=== PATIENT | female | born 1965 | race Caucasian/White ===

== ENCOUNTER 2017-07-15 06:40 | Emergency (ER) | payer BC, SELFPAY ==
[2017-07-15 06:41] VITALS: BP 120/76; PULSE 86; RESP 16; TEMP 36.9; O2SAT 100; BMI 32.7
--- NOTE | 2017-07-15 07:04 | RAD_ITS ---
STUDY: X-RAY - RIGHT KNEE REASON FOR EXAM: Female, 51 years old. Fall TECHNIQUE: 4 view(s) of the knee. COMPARISON: None. FINDINGS: Normal visualized distal femur. Normal visualized proximal tibia and fibula. Normal proximal tibiofibular articulation. There is no demonstrated fracture. Normal medial femorotibial compartment. Normal lateral femorotibial compartment. 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 There is a soft tissue prominence in the suprapatellar region suggesting a small volume joint effusion. The soft tissue structures are unremarkable. RAD/Knee 4 or More Views IMPRESSION: There is NO fracture or malalignment. 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 There is a small joint effusion. Electronically Signed: Neville Torres MD at 7:46 EDT , Service support ,
--- NOTE | 2017-07-15 07:08 | ED.VISSUMM ---
- ER Visit Summary Date of Service: 07/15/17 Chief Complaint: Right knee pain History of Present Illness: The patient is a [address] Arguello. She reports that yesterday she was putting her shoe on and lost her balance. She fell and injured her right knee. She is unsure whether she tell us that it awkwardly or landed on it. States that she had minimal pain initially, but over the course the night the pain is gotten much worse. Is an aching pain that is 10 out of 10 with movement or walking. She is pain-free at rest. She denies any other injuries. No loss of consciousness, neck, back, shoulder, or wrist pain. Physical Examination: Vitals: Stable. Afebrile. Neck: No vertebral tenderness. Full ROM without difficulty. Cleared by NEXUS criteria. Back: No vertebral tenderness. General: A&O x 3. NAD. Cardiovascular exam: Regular rate and rhythm, no murmur, rub or gallop. Respiratory exam: Chest nontender. No crepitus. Clear to auscultation bilaterally. No wheezes or stridor. Abdominal exam: Soft, nontender, nondistended, normal bowel sounds. No pain in RUQ or LUQ specifically. No peritoneal signs. Extremity: Moderate diffuse tenderness palpation over her right knee. There is a small joint effusion, the exam is limited by body habitus. She has pain with posterior drawer, but no ligamentous instability. No pain with anterior drawer/medial/lateral stress. No ligamentous instability. Negative Celina. Test Results: Right knee x-ray shows no fracture. Emergency Department Course and Treatment: Patient was treated with naproxen and [place] p.o. She is resting comfortably. Treatment Plan: Patient will be discharged with [place] and naproxen. Instructed to follow-up Dr. Jose E Terrell in 1 week if not improving. Disposition: To home in improved and stable condition. Impression: 1. Right knee pain, acute. This note was generated with [employer] dictation software. It may contain incorrect words, spelling, and punctuation that were not noted in review of the chart prior to signing ED Disposition - Plan for ED Patient: Chief Complaint: Lower Extremity Injury Instructions: ED Knee Pain UKO Prescriptions: Hydrocodone Bitart/Apap 5-325 [Bethel 5/325] 1 - 2 tablet PO Q4H PRN PRN 3 Days #20 tablet PRN Reason: Pain Naproxen [Naprosyn] 500 mg PO BID #20 tablet Referrals: Jose E Terrell MD [STAFF PHYSICIAN] - 1 Week if not improving
[2017-07-15] MEDS: Naproxen 250 MG Tablet 500 MG PO (07:13)
[2017-07-15] MEDS: HYDROcodone Bitartrate/Apap 5/325 Tablet PO (07:13)
--- NOTE | 2017-07-15 07:13 | ED.DCSUM_ITS ---
- ER Visit Summary Date of Service: 07/15/17 Chief Complaint: Right knee pain History of Present Illness: The patient is a [address] Arguello. She reports that yesterday she was putting her shoe on and lost her balance. She fell and injured her right knee. She is unsure whether she tell us that it awkwardly or landed on it. States that she had minimal pain initially, but over the course the night the pain is gotten much worse. Is an aching pain that is 10 out of 10 with movement or walking. She is pain-free at rest. She denies any other injuries. No loss of consciousness, neck, back, shoulder, or wrist pain. Physical Examination: Vitals: Stable. Afebrile. Neck: No vertebral tenderness. Full ROM without difficulty. Cleared by NEXUS criteria. Back: No vertebral tenderness. General: A&O x 3. NAD. Cardiovascular exam: Regular rate and rhythm, no murmur, rub or gallop. Respiratory exam: Chest nontender. No crepitus. Clear to auscultation bilaterally. No wheezes or stridor. Abdominal exam: Soft, nontender, nondistended, normal bowel sounds. No pain in RUQ or LUQ specifically. No peritoneal signs. Extremity: Moderate diffuse tenderness palpation over her right knee. There is a small joint effusion, the exam is limited by body habitus. She has pain with posterior drawer, but no ligamentous instability. No pain with anterior drawer/ medial/lateral stress. No ligamentous instability. Negative Celina. Test Results: Right knee x-ray shows no fracture. Emergency Department Course and Treatment: Patient was treated with naproxen and [place] p.o. She is resting comfortably. Treatment Plan: Patient will be discharged with [place] and naproxen. Instructed to follow-up Dr. Jose E Terrell in 1 week if not improving. Disposition: To home in improved and stable condition. Impression: 1. Right knee pain, acute. This note was generated with [employer] dictation software. It may contain incorrect words, spelling, and punctuation that were not noted in review of the chart prior to signing ED Disposition - Plan for ED Patient: Chief Complaint: Lower Extremity Injury Instructions: ED Knee Pain UKO Prescriptions: Hydrocodone Bitart/Apap 5-325 [[place] 5/325] 1 - 2 tablet PO Q4H PRN PRN 3 Days # 20 tablet PRN Reason: Pain Naproxen [Naprosyn] 500 mg PO BID #20 tablet Referrals: Jose E Terrell MD [STAFF PHYSICIAN] - 1 Week if not improving
[2017-07-15 08:08] VITALS: RESP 16
== END 2017-07-15 08:08 | disposition home or self-care (01) ==
PROVIDERS: Emergency Provider Emergency Medicine; Family Provider Family Medicine; PCP Family Medicine
DX: M25.561 Pain in right knee (principal); M25.461 Effusion, right knee
CPT/HCPCS: 73564; 99283

== ENCOUNTER 2017-11-23 10:37 | Inpatient (IN) | payer BC, SELFPAY ==
[2017-11-23] VITALS (14 sets, daily range): BP systolic 94–134; BP diastolic 56–85; PULSE 75–121; RESP 13–21; TEMP 37.1–37.3; O2SAT 96–100; BMI 32.9; BMI 31.9
--- NOTE | 2017-11-23 11:17 | EKG12_ITS ---
Test Reason : CP Blood Pressure : / mmHG Vent. Rate : 099 BPM Atrial Rate : 099 BPM P-R Int : 134 ms QRS Dur : 082 ms QT Int : 362 ms P-R-T Axes : 041 -01 186 degrees QTc Int : 464 ms Normal sinus rhythm Inferior infarct, age undetermined ST & T wave abnormality, consider myocardial ischemia Abnormal ECG Reconfirmed by YVETTE RICHARDSON, DAVID ([id number]), editorial cartoonist RITA CLARKE ([id number]) on 12/28/2017 2:48:38 PM Referred By: AGUSTINA Confirmed By:DAVID CRAWFORD MD
--- NOTE | 2017-11-23 11:24 | RAD_ITS ---
STUDY: X-RAY CHEST REASON FOR EXAM: Female, 52 years old. Chest pain TECHNIQUE: PA and lateral views of the chest. COMPARISON: None. FINDINGS: The lungs are clear and expanded. There is no demonstrated pleural abnormality. Normal size heart. Normal mediastinum and rae. Normal visualized pulmonary arteries. Normal visualized aortic arch and descending thoracic aorta. Normal visualized thoracic spine. Normal visualized ribs, clavicles, and shoulders. There is no demonstrated abnormality of the visualized soft tissue structures of the upper abdomen. RAD/Chest 1 View (Portable) IMPRESSION: Normal x-ray examination of the chest. Electronically Signed: Michael Hoffmann MD at 11:45 EDT Tel , Service support ,
[2017-11-23 11:35] LABS: Absolute Lymphocyte Count 1.14 X10^3/ul (0.83-4.51); Absolute Neutrophil Count 4.6 X10^3/uL (2.0-7.7); Basophil# 0.02 X10^3/uL; Basophil% 0.3 % (0-1); Eosinophil# 0.04 X10^3/uL; Eosinophils% 0.6 % (0-5); Hematocrit 41.1 % (37-47); Hemoglobin 13.6 g/dl (12.0-15.0); Lymphocyte # 1.14 X10^3/ul (4.0); Lymphocyte % 18.4 % (19-41); Mean Corp Hgb Conc 33.1 g/gl (32-36); Mean Corpuscular Hgb 33.1 pg (27.0-32.0); Mean Platelet Vol. 9.8 fl (6.2-12.0); Monocyte# 0.44 X10^3/uL; Monocyte% 7.1 % (0-10); Neutrophil # 4.56 X10^3/uL (2.7-7.7); Neutrophil % 73.6 % (47-70); POSITIVE COUNT NO; POSITIVE DIFFERENTIAL NO; POSITIVE MORPHOLOGY NO; Platelet Count 130 K/mm3 (150-450); RBC Distribution Width SD 47.3 fl (35.1-43.9); Red Blood Count 4.11 M/mm3 (4.2-5.4); White Blood Count 6.2 K/mm3 (4.4-11.0)
--- NOTE | 2017-11-23 11:43 | ED.VISSUMM ---
- ER Visit Summary Date of Service: 11/23/17 Chief Complaint: Chest pain History of Present Illness: The patient is a 52 F who states that last week she was on vacation in [place] she states that on Thursday she began to have a pressure in her chest with exertion that would always resolve when she rested. She states now with even the minimalist amount of exertion she feels the pressure. At rest she feels better. She states that she returned home from her vacation on Thursday and felt dehydrated and was shaky and jerky at times. She states that part is resolved but she continues to have the chest pressure with exertion. 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 She went to her primary care physician's office and was referred to the emergency department based on an abnormal EKG. This showed ST T-wave changes anterior laterally. Patient has no old EKGs to compare to. She has a history of hypertension. She does not take daily aspirin. The patient states that she will require some type of sedative even to have simple blood work drawn. Physical Examination: Afebrile vital signs are stable Gen: Well-nourished well-developed Head: Normocephalic atraumatic Eyes: Perrl EOMI ENT: TMs clear no rhinorrhea moist mucous membranes Neck: Supple no lymphadenopathy no JVD nontender CVS: Regular rate rhythm no murmurs normal S1-S2 Respiratory: No distress clear to auscultation bilaterally chest nontender Abdomen: Soft nontender nondistended normal bowel sounds no masses Back: Nontender Extremity: Nontender no edema Skin: Normal color no rash Neuro: alert orientated ?3 CN II-XII intact normal strength sensation reflexes gait cerebellar Psych: Very anxious Test Results: EKG here in the department shows ST and T-wave changes anterior lateral leads. Upon an elevated at 0.179. Creatinine 0.92. Chest x-ray negative. Repeat EKG shows resolved changes at rest. Emergency Department Course and Treatment: Received Ativan and aspirin. She also received metoprolol because her heart rate was at 100. We also gave her 180 mg of Brilinta and a heparin bolus and drip addition to nitro paste. Case was discussed with Dr. Pathak and Dr. Loaiza Impression: 1. Acute coronary syndrome This note was generated with [employer].ation software. It may contain incorrect words, spelling, and punctuation that were not noted in review of the chart prior to signing ED Disposition - Plan for ED Patient: Chief Complaint: Chest Pain
--- NOTE | 2017-11-23 11:46 | ED.DCSUM_ITS ---
- ER Visit Summary Date of Service: 11/23/17 Chief Complaint: Chest pain History of Present Illness: The patient is a 52 F who states that last week she was on vacation in [place] she states that on Thursday she began to have a pressure in her chest with exertion that would always resolve when she rested. She states now with even the minimalist amount of exertion she feels the pressure. At rest she feels better. She states that she returned home from her vacation on Thursday and felt dehydrated and was shaky and jerky at times. She states that part is resolved but she continues to have the chest pressure with exertion. 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 She went to her primary care physician's office and was referred to the emergency department based on an abnormal EKG. This showed ST T -wave changes anterior laterally. Patient has no old EKGs to compare to. She has a history of hypertension. She does not take daily aspirin. The patient states that she will require some type of sedative even to have simple blood work drawn. Physical Examination: Afebrile vital signs are stable Gen: Well-nourished well-developed Head: Normocephalic atraumatic Eyes: Perrl EOMI ENT: TMs clear no rhinorrhea moist mucous membranes Neck: Supple no lymphadenopathy no JVD nontender CVS: Regular rate rhythm no murmurs normal S1-S2 Respiratory: No distress clear to auscultation bilaterally chest nontender Abdomen: Soft nontender nondistended normal bowel sounds no masses Back: Nontender Extremity: Nontender no edema Skin: Normal color no rash Neuro: alert orientated ?3 CN II-XII intact normal strength sensation reflexes gait cerebellar Psych: Very anxious Test Results: EKG here in the department shows ST and T-wave changes anterior lateral leads. Upon an elevated at 0.179. Creatinine 0.92. Chest x-ray negative. Repeat EKG shows resolved changes at rest. Emergency Department Course and Treatment: Received Ativan and aspirin. She also received metoprolol because her heart rate was at 100. We also gave her 180 mg of Brilinta and a heparin bolus and drip addition to nitro paste. Case was discussed with Dr. Pathak and Dr. Loaiza Impression: 1. Acute coronary syndrome This note was generated with [employer] software. It may contain incorrect words, spelling, and punctuation that were not noted in review of the chart prior to signing ED Disposition - Plan for ED Patient: Chief Complaint: Chest Pain
[2017-11-23 11:52] LABS: Anion Gap 9 (5-15); BUN 7 mg/dL (7-18); BUN/Creat Ratio 7.6 RATIO (10-20); Calcium,Total 9.4 mg/dL (8.5-10.1); Chloride 98 mmol/L (98-107); Creatinine, Serum 0.92 mg/dL (0.55-1.02); EST Glomerular Filtration Rate 69 mL/min (>60); Est Glom Filt Rate - Afr Amer 83 mL/min (>60); Estimated Creatinine Clearance 71.14 ml/min; Glucose 89 mg/dL (74-106); Potassium 3.6 mmol/L (3.5-5.1); Sodium Level 134 mmol/L (136-145)
[2017-11-23] MEDS: Aspirin 81 MG TAB.CHEW 324 MG PO (11:59)
[2017-11-23] MEDS: LORazepam 1 MG Tablet PO (11:59)
--- NOTE | 2017-11-23 12:10 | EKG12_ITS ---
Test Reason : REPEAT EKG Blood Pressure : / mmHG Vent. Rate : 096 BPM Atrial Rate : 096 BPM P-R Int : 162 ms QRS Dur : 082 ms QT Int : 336 ms P-R-T Axes : 032 -15 023 degrees QTc Int : 424 ms Normal sinus rhythm Leftward axis Inferior OH, age undetermined, cannot be excluded Confirmed by YVETTE RICHARDSON, DAVID ([id number]), editor publications RITA CLARKE ([id number]) on 11/27/2017 1:08:17 PM Referred By: KAJAL Confirmed By:DAVID CRAWFORD MD
--- NOTE | 2017-11-23 12:39 | PCM.HP.STD ---
Problem List (1) Unstable angina Status: Acute (2) NSTEMI (non-ST elevated myocardial infarction) Status: Acute (3) Hypertension Status: Chronic Qualifiers: Hypertension type: essential hypertension Qualified Code(s): I10 - Essential (primary) hypertension History of Present Illness Date of Admission: 11/23/17 Chief Complaint: Chest pain - 6 days The patient is a 52 year old F with PMHx of hypertension, who comes with chest pain ongoing for 6 days. Chest pain described as substernal, pressure-like, nonradiating worse with exertion for the first 2 days. Subsequently chest pain occured at rest and with minimal exertion. Denied any diaphoresis, nausea or vomiting but felt very weak and lightheaded. She thought it was because she was dehydrated and started to hydrate herself with Gatorade which seemed to help the symptoms a little bit. She eventually became bedbound because with a minimal exertion she gets severe chest pain that takes several minutes to resolve. Vitals in the ED with a stable. Admitting blood work was unremarkable. EKG initially showed T-wave inversions in the anterolateral leads, repeat EKG shows improvement and normalization of the T waves. Her initial troponin was slightly elevated Past Medical History Past Medical History (Chronic Problems): Chronic Problems Hypertension (Chronic) Allergies No Known Allergies Allergy (Verified 11/23/17 10:40) Home Medications: Ambulatory Orders Medication Instructions Recorded Losartan Potassium 1 tab PO DAILY 11/23/17 Pnv No.122/Iron/Folic Acid 1 each PO DAILY 11/23/17 [ Multi Tablet] Surgical History: no surgical history Psychiatric History: No pertinent psych hx Lives: Spouse/ Significant Other Smoking Status: Never smoker Tobacco Use: Non-smoker Alcohol: None Drugs: None - *Family History Maternal History Items: Hypertension Paternal History Items: Cancer Review of Systems Constitutional: Reports: Weakness. Denies: Anorexia, Chills, Fever, Weight Change Eyes: Denies: Blurred vision, Cataracts HEENT: Denies: Difficulty Hearing, Difficulty Swallowing, Head Aches, Hearing Changes, Sinus Congestion, Sinus Drainage Cardiovascular: Reports: Chest Pain, Chest Pressure, Chest Tightness, Light Headedness. Denies: Edema, Orthopnea, Palpitations, Paroxysmal Noc. Dyspnea, Syncope Respiratory: Denies: Cough, Hemoptysis, Shortness of breath at rest, Shortness of breath upon exertion, Sputum production Gastrointestinal: Denies: Abdominal Pain, Constipation, Hematemesis, Nausea, Vomiting Genitourinary: Denies: Dysuria Musculoskeletal: Denies: Joint Pain, Joint stiffness, Joint swelling, Joint Tenderness Skin: Denies: Rash, Wounds Neurological: Denies: Numbness, Tingling, Focal weakness Psychiatric: Denies: Anxiety, Depression, Homicidal Ideations, Suicidal Ideations Hematologic/ Lymphatic: Denies: Easy Bruising, Easy Bleeding VTE Information - Inpt Only VTE Present on Admission: No VTE Pharm Prophylaxis ordered?: Yes Patient Problems: Active and Suspected Problems Unstable angina (Acute) NSTEMI (non-ST elevated myocardial infarction) (Acute) - Physical Exam General: Alert, Oriented x3, Cooperative, No apparent distress, - HEENT: Atraumatic, PERRLA, EOMI, Normocephalic Oral: Moist Mucosa - Appears anxious Neck: Supple, No JVD, Negative Carotid Bruits Lungs: Clear to auscultation, Normal air movement Cardiovascular: Regular rate, Regular Rhythm, Normal S1, Normal S2, No murmurs Abdomen: Bowel Sounds Present, Soft, Non Tender, Non-Distended, No Hepato-splenomegaly Extremities: No edema Skin: No rashes, No breakdown Musculoskeletal: No Tenderness to Palpation of Joints or Extremities Lymphatic: No Cervical, Supraclavicular, or Inguinal Adenopathy Neurological: Cranial nerves II-XII grossly intact, Neuro grossly intact Psych/Mental Status: Normal Affect, Appropriate Vital Signs Temp Pulse Resp BP Pulse Ox 99.1 F 98 21 H 111/72 98 11/23/17 10:37 11/23/17 12:11 11/23/17 12:11 11/23/17 12:11 11/23/17 12:11 Oxygen Delivery Method Room Air Weight: 95.4 kg Body Mass Index (BMI) 32.9 Laboratory Tests Past 24 Hrs 11/23/17 11/23/17 11:26 11:26 WBC 6.2 RBC 4.11 L Hgb 13.6 Hct 41.1 MCV 100.0 H MCH 33.1 H MCHC 33.1 RDW 13.0 RDW Differential 47.3 H Plt Count 130 L MPV 9.8 Immature Gran % (Auto) 0.000 Neut % (Auto) 73.6 H Lymph % (Auto) 18.4 L [place] % (Auto) 7.1 Eos % (Auto) 0.6 Baso % (Auto) 0.3 Absolute Neuts (auto) 4.6 Absolute Lymphs (auto) 1.14 Total Counted Not Reportable Sodium 134 L Potassium 3.6 Chloride 98 Carbon Dioxide 27.0 Anion Gap 9 BUN 7 Creatinine 0.92 Estim Creat Clear Calc 71.14 Est GFR (MDRD) Af Amer 83 Est GFR (MDRD) Non-Af 69 BUN/Creatinine Ratio 7.6 L Glucose 89 Calcium 9.4 Troponin I 0.174 H Assessment/Plan All Active Problems Unstable angina (Acute) NSTEMI (non-ST elevated myocardial infarction) (Acute) 52 year old F with PMHx of hypertension, who comes with chest pain ongoing for 6 days. Chest pain described as substernal, pressure-like, nonradiating worse with exertion for the first 2 days. Subsequently chest pain occured at rest and with minimal exertion. 1. Chest pain, typical, concerning for NSTEMI/UA, TANMAY score of 2, started on heparin drip, loaded on Brilinta, Cardiology consulted; per ED, patient will be taken to cardiac cath today Plan: Admit to PCU, monitor on telemetry, trend troponins, continue on heparin drip, continue on Brilinta, beta-dona, aspirin, statin, lipid profile in a.m. 2. Hypertension, on losartan, continue same 3. Anxiety disorder, not on any home meds, likely situtational, will put on prn Ativan 4. DVT PPx- on Heparin drip. Code Visit Inpatient E&M: 37435 Init Hosp L3
[2017-11-23 12:52] LABS: Partial Thromboplast Time 27.4 Seconds (24.1-36.2)
[2017-11-23 12:55] LABS: Prothrombin Time (Protime)PT. 12.8 SECONDS (11.7-14.9)
[2017-11-23 13:01] LABS: AST(SGOT) 27 U/L (15-37); Alanine Aminotransfer ALT/SGPT 28 U/L (13-56); Albumin, Serum 3.4 g/dL (3.2-5.0); Alkaline Phosphatase 65 U/L (45-117); Bilirubin, Direct 0.17 mg/dL (0.00-0.30); Globulin 4.5 g/dL (2.2-4.2); Protein, Total 7.9 g/dL (6.4-8.2)
[2017-11-23] MEDS: TICAGRELOR 90 MG TABLET 180 MG PO (13:06)
[2017-11-23] MEDS: Heparin Injection (Vial) 5,000 UNIT/ML VIAL 7500 UNIT IV (13:06)
[2017-11-23] MEDS: Nitroglycerin Oint 1 INCH PACKET TRANSDERM. (13:06)
[2017-11-23] MEDS: Metoprolol Tartrate 5 MG/5 ML Vial IV (13:06)
[2017-11-23] MEDS: LORazepam 2 MG/ML Syringe 1 MG IV (16:53)
--- NOTE | 2017-11-23 17:20 | PCM.CONS.C ---
Problem List (1) Unstable angina Status: Acute (2) NSTEMI (non-ST elevated myocardial infarction) Status: Acute (3) Hypertension Status: Chronic Qualifiers: Hypertension type: essential hypertension Qualified Code(s): I10 - Essential (primary) hypertension Reason for Consult Date of Consultation: 11/23/17 History of Present Illness: The patient is a 52 year old white female with a past medical history of hypertension who presents for evaluation of symptoms concerning for unstable angina pectoris and an abnormal troponin I level concerning for an acute non-ST segment elevation VT. The patient states to the best of her knowledge she has no previous cardiovascular history other than her hypertension. She was in her usual state of health until recently when she felt she was cramping all over from dehydration. She increased her fluid intake including agents such as Gatorade. She noted her cramping sensation abated. 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 This created a discomfort across her chest without significant radiation or other associated symptoms other than dyspnea. Her symptoms abated when she was resting. She has had no orthopnea, PND, or peripheral pitting edema. There has been no near syncope or syncope. She denies any recent illnesses or emotionally stressful events. She presented to her primary care physician office earlier this day. An ECG was obtained. She was noted to have sinus rhythm with T-wave changes compatible with myocardial ischemia in the anterior, lateral, and inferior distributions. She was subsequently referred to the emergency department for further evaluation. There she had an abnormal troponin I level. A repeat ECG appeared to be similar. However, after she was in the emergency department for a period of time resting, her ECG was repeated which demonstrated her previous T-wave inversions returning towards baseline. She was treated for the aforementioned changes and subsequently admitted to the PCU for further evaluation and care. [] Past Medical History Allergies/Adverse Reactions: Allergies No Known Allergies Allergy (Verified 11/23/17 10:40) Home Medications: Ambulatory Orders Medication Instructions Recorded Losartan Potassium 1 tab PO DAILY 11/23/17 Pnv No.122/Iron/Folic Acid 1 each PO DAILY 11/23/17 [ Multi Tablet] Past Medical History (Chronic Problems): Chronic Problems Hypertension (Chronic) Surgical History: no surgical history Psychiatric History: No pertinent psych hx - *Family History Maternal History Items: Hypertension Paternal History Items: Cancer Lives: Spouse/ Significant Other Smoking Status: Never smoker Tobacco Use: Non-smoker Alcohol: None Drugs: None Review of Systems - Review of Systems General: Denies: Fever, Night Sweats, Fatigue Cardiovascular: Reports: Chest Discomfort, Chest Discomfort with Exertion, Shortness of Breath, Shortness of Breath with Exertion. Denies: Orthopnea, PND, Peripheral Edema, Palpitations, Lightheadedness, Dizziness, Near Syncope, Syncope Respiratory: Denies: Cough, Sputum Production, Hemoptysis Gastrointestinal: Denies: Hematemesis, Hematochezia, Melena Genitourinary: Denies: Dysuria, Hematuria Skin: Denies: Rash Subjectve: This is a 52-year-old white female who appears to be resting comfortably at the moment in no acute distress. Objective: Vital Signs Temp Pulse Resp BP Pulse Ox 99.1 F 94 16 94/64 97 11/23/17 10:37 11/23/17 15:38 11/23/17 13:20 11/23/17 13:20 11/23/17 15:30 Oxygen Delivery Method Room Air Weight: 204 lb 2.369 oz Body Mass Index (BMI) 31.9 General: Awake, Alert, Oriented x 3, Cooperative, No Acute Distress HEENT: Atraumatic, Normocephalic, PERRL, EOMI, Sclera Non Icteric Oral: Moist Mucosa Neck: Supple, Good ROM, No JVD Lungs: Clear to auscultation Cardiovascular: Regular Rhythm, Normal S1, Normal S2 Murmur Murmur: Grade 3/6, Harsh, Mid Systolic, LLSB, LVOT, Sternal Notch Vascular: No Carotid Bruits Abdomen: Bowel Sounds Present, Soft, Non Tender Extremities: No Cyanosis, No Clubbing, No edema Neurological: No Focal Motor or Sensory Deficit Psych/Mental Status: Appropriate, Normal Affect Rhythm: Sinus rhythm EKG: As noted above ECHO: Pending CXR: Preliminary evaluation: No acute cardiopulmonary disease process appreciated Assessment/Plan 1. Unstable angina pectoris The patient presents with symptoms concerning for unstable angina pectoris. She has been undergoing noninvasive evaluation thus far. She has been treated medically. She appears to be symptomatically improved at rest. She will continue to be monitored. She will continue medical management. It has been recommended she be considered for further evaluation with diagnostic cardiac catheterization. The procedure and risks were discussed with her and she was agreeable to this approach. 2. Non-ST segment elevation VT The patient has the aforementioned clinical presentation as well as objective findings with an abnormal troponin I level and ECG changes with waxing and waning T-wave changes. At the moment patient appears to be symptomatically stable. She will continue medical management. She will be recommended for further evaluation with diagnostic cardiac catheterization. 3. Hypertension The patient states her blood pressures been well controlled on her medications. Her blood pressures will be followed. Her medications will be adjusted as she goes to her evaluation and care. Comment: The above was discussed with the patient, her multiple family members present, and the [facility] emergency department staff. This note was generated with [employer] dictation software. It may contain incorrect words, spelling, and punctuation that were not noted in checking the note before signing.
--- NOTE | 2017-11-23 17:27 | CON.PCM_ITS ---
Problem List (1) Unstable angina Status: Acute (2) NSTEMI (non-ST elevated myocardial infarction) Status: Acute (3) Hypertension Status: Chronic Qualifiers: Hypertension type: essential hypertension Qualified Code(s): I10 - Essential (primary) hypertension Reason for Consult Date of Consultation: 11/23/17 History of Present Illness: The patient is a 52 year old white female with a past medical history of hypertension who presents for evaluation of symptoms concerning for unstable angina pectoris and an abnormal troponin I level concerning for an acute non-ST segment elevation [place]. The patient states to the best of her knowledge she has no previous cardiovascular history other than her hypertension. She was in her usual state of health until recently when she felt she was cramping all over from dehydration. She increased her fluid intake including agents such as Gatorade. She noted her cramping sensation abated. 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 This created a discomfort across her chest without significant radiation or other associated symptoms other than dyspnea. Her symptoms abated when she was resting. She has had no orthopnea, PND, or peripheral pitting edema. There has been no near syncope or syncope. She denies any recent illnesses or emotionally stressful events. She presented to her primary care physician office earlier this day. An ECG was obtained. She was noted to have sinus rhythm with T-wave changes compatible with myocardial ischemia in the anterior, lateral, and inferior distributions. She was subsequently referred to the emergency department for further evaluation. There she had an abnormal troponin I level. A repeat ECG appeared to be similar. However, after she was in the emergency department for a period of time resting, her ECG was repeated which demonstrated her previous T -wave inversions returning towards baseline. She was treated for the aforementioned changes and subsequently admitted to the PCU for further evaluation and care. [] Past Medical History Allergies/Adverse Reactions: Allergies No Known Allergies Allergy (Verified 11/23/17 10:40) Home Medications: Ambulatory Orders Medication Instructions Recorded Losartan Potassium 1 tab PO DAILY 11/23/17 Pnv No.122/Iron/Folic Acid 1 each PO DAILY 11/23/17 [ Multi Tablet] Past Medical History (Chronic Problems): Chronic Problems Hypertension (Chronic) Surgical History: no surgical history Psychiatric History: No pertinent psych hx - *Family History Maternal History Items: Hypertension Paternal History Items: Cancer Lives: Spouse/ Significant Other Smoking Status: Never smoker Tobacco Use: Non-smoker Alcohol: None Drugs: None Review of Systems - Review of Systems General: Denies: Fever, Night Sweats, Fatigue Cardiovascular: Reports: Chest Discomfort, Chest Discomfort with Exertion, Shortness of Breath, Shortness of Breath with Exertion. Denies: Orthopnea, PND , Peripheral Edema, Palpitations, Lightheadedness, Dizziness, Near Syncope, Syncope Respiratory: Denies: Cough, Sputum Production, Hemoptysis Gastrointestinal: Denies: Hematemesis, Hematochezia, Melena Genitourinary: Denies: Dysuria, Hematuria Skin: Denies: Rash Subjectve: This is a 52-year-old white female who appears to be resting comfortably at the moment in no acute distress. Objective: Vital Signs Temp Pulse Resp BP Pulse Ox 99.1 F 94 16 94/64 97 11/23/17 10:37 11/23/17 15:38 11/23/17 13:20 11/23/17 13:20 11/23/17 15:30 Oxygen Delivery Method Room Air Weight: 204 lb 2.369 oz Body Mass Index (BMI) 31.9 General: Awake, Alert, Oriented x 3, Cooperative, No Acute Distress HEENT: Atraumatic, Normocephalic, PERRL, EOMI, Sclera Non Icteric Oral: Moist Mucosa Neck: Supple, Good ROM, No JVD Lungs: Clear to auscultation Cardiovascular: Regular Rhythm, Normal S1, Normal S2 Murmur Murmur: Grade 3/6, Harsh, Mid Systolic, LLSB, LVOT, Sternal Notch Vascular: No Carotid Bruits Abdomen: Bowel Sounds Present, Soft, Non Tender Extremities: No Cyanosis, No Clubbing, No edema Neurological: No Focal Motor or Sensory Deficit Psych/Mental Status: Appropriate, Normal Affect Rhythm: Sinus rhythm EKG: As noted above ECHO: Pending CXR: Preliminary evaluation: No acute cardiopulmonary disease process appreciated Assessment/Plan 1. Unstable angina pectoris The patient presents with symptoms concerning for unstable angina pectoris. She has been undergoing noninvasive evaluation thus far. She has been treated medically. She appears to be symptomatically improved at rest. She will continue to be monitored. She will continue medical management. It has been recommended she be considered for further evaluation with diagnostic cardiac catheterization. The procedure and risks were discussed with her and she was agreeable to this approach. 2. Non-ST segment elevation [place] The patient has the aforementioned clinical presentation as well as objective findings with an abnormal troponin I level and ECG changes with waxing and waning T-wave changes. At the moment patient appears to be symptomatically stable. She will continue medical management. She will be recommended for further evaluation with diagnostic cardiac catheterization. 3. Hypertension The patient states her blood pressures been well controlled on her medications. Her blood pressures will be followed. Her medications will be adjusted as she goes to her evaluation and care. Comment: The above was discussed with the patient, her multiple family members present, and the [facility] emergency department staff. This note was generated with [facility] dictation software. It may contain incorrect words, spelling, and punctuation that were not noted in checking the note before signing.
[2017-11-23] MEDS: 0.9% NaCl Peripheral Flush Adult/Peds IV ×2 (21:38→22:42)
[2017-11-23] MEDS: Atorvastatin Calcium 40 MG Tablet PO (21:40)
[2017-11-23] MEDS: TICAGRELOR 90 MG TABLET PO (21:41)
[2017-11-23] MEDS: MELATONIN 3 MG TABLET PO (21:41)
[2017-11-23 23:09] LABS: Partial Thromboplast Time 133.5 Seconds (24.1-36.2)
[2017-11-24] VITALS (15 sets, daily range): BP systolic 89–116; BP diastolic 55–76; PULSE 70–93; RESP 14–24; TEMP 37–37.2; O2SAT 96–99
[2017-11-24 00:56] LABS: Color, Urine Yellow (Yellow); Glucose, Dipstick Normal (Normal); Ketone-Dipstick Negative (Negative); Leukocyte Esterase-Dipstick 25 /ul (Negative); Nitrite-Dipstick Negative (Negative); Occult Blood-Urine Negative /ul (Negative); Protein-Dipstick Negative (Negative); Urine Bilirubin Dipstick Negative (Negative); Urine Clarity Sl. Cloudy (Clear); Urine Urobilinogen 1 mg/dl (Normal)
[2017-11-24 00:58] LABS: Internal QC Validated? YES +Cl - CLEAR BKGD; Pregnancy, Urine Negative Negative
--- NOTE | 2017-11-24 02:29 | NURSING ---
Heparin gtt put on hold at 01:[address] Pathak.
[2017-11-24 03:01] LABS: Absolute Lymphocyte Count 1.21 X10^3/ul (0.83-4.51); Absolute Neutrophil Count 3.5 X10^3/uL (2.0-7.7); Basophil# 0.02 X10^3/uL; Basophil% 0.4 % (0-1); Eosinophil# 0.08 X10^3/uL; Eosinophils% 1.6 % (0-5); Hematocrit 37.8 % (37-47); Hemoglobin 12.8 g/dl (12.0-15.0); Lymphocyte # 1.21 X10^3/ul (4.0); Lymphocyte % 23.9 % (19-41); Mean Corp Hgb Conc 33.9 g/gl (32-36); Mean Corpuscular Hgb 33.8 pg (27.0-32.0); Mean Corpuscular Volume 99.7 fL (81-99); Mean Platelet Vol. 9.8 fl (6.2-12.0); Monocyte# 0.24 X10^3/uL; Monocyte% 4.7 % (0-10); Neutrophil # 3.51 X10^3/uL (2.7-7.7); Neutrophil % 69.2 % (47-70); Platelet Count 117 K/mm3 (150-450); RBC Distribution Width CV 13.2 % (11.6-14.6); RBC Distribution Width SD 47.9 fl (35.1-43.9); Red Blood Count 3.79 M/mm3 (4.2-5.4); White Blood Count 5.1 K/mm3 (4.4-11.0)
[2017-11-24 03:05] LABS: POSITIVE COUNT NO; POSITIVE DIFFERENTIAL NO; POSITIVE MORPHOLOGY NO
[2017-11-24 03:11] LABS: Prothrombin Time (Protime)PT. 12.8 SECONDS (11.7-14.9)
[2017-11-24 03:24] LABS: Anion Gap 8 (5-15); BUN 12 mg/dL (7-18); BUN/Creat Ratio 12.9 RATIO (10-20); Calcium,Total 8.8 mg/dL (8.5-10.1); Chloride 100 mmol/L (98-107); Cholesterol 158 mg/dL (200); Creatinine, Serum 0.93 mg/dL (0.55-1.02); EST Glomerular Filtration Rate 68 mL/min (>60); Est Glom Filt Rate - Afr Amer 82 mL/min (>60); Estimated Creatinine Clearance 70.38 ml/min; Glucose 91 mg/dL (74-106); High Density Lipoprotein 96 mg/dL; Potassium 3.6 mmol/L (3.5-5.1); Sodium Level 136 mmol/L (136-145); Triglycerides 117 mg/dL; Very Low Density Lipoprotein 23 mg/dL (5-40)
[2017-11-24 03:39] LABS: Partial Thromboplast Time 29.9 Seconds (24.1-36.2)
--- NOTE | 2017-11-24 05:55 | EKG12_ITS ---
Test Reason : AM EKG Blood Pressure : / mmHG Vent. Rate : 085 BPM Atrial Rate : 085 BPM P-R Int : 146 ms QRS Dur : 088 ms QT Int : 378 ms P-R-T Axes : 040 -26 027 degrees QTc Int : 449 ms Normal sinus rhythm T wave abnormality, consider anterior ischemia Abnormal ECG When compared with ECG of 23-NOV-2017 12:12, MANUAL COMPARISON REQUIRED, DATA IS UNCONFIRMED Confirmed by DARYN SAUCEDA ([id number]), online editor RITA CLARKE ([id number]) on 11/26/2017 12:37:54 PM Referred By: EVELYN Confirmed By:DARYN SAUCEDA
[2017-11-24] MEDS: TICAGRELOR 90 MG TABLET PO (06:17)
[2017-11-24] MEDS: 0.9% NaCl Peripheral Flush Adult/Peds IV (06:17)
[2017-11-24] MEDS: Aspirin E.C. 81 MG Tablet PO (06:17)
[2017-11-24] MEDS: 0.9% Normal Saline 1,000 ML 15 ML IV (06:21)
--- NOTE | 2017-11-24 08:32 | CASEMGMT ---
According to the [facility] website, the following are in-network tertiary facilities: [facility], [place], [facility], [facility], [facility], and . Tony ROBLES CM
--- NOTE | 2017-11-24 08:58 | CL.D_ITS ---
Patient Name: TENA CABRALES Study Date: 11/24/2017 Performing: Chaz Pathak MD Ht: 66.92 inches 170 cm : 1965 Wt: 205.03 lbs 93 kg Age: 52 Gender: female BSA: 2.04 PROCEDURE(S) PERFORMED [id number]-[id number]/COR/LV CLINICAL PROFILE AND INDICATIONS Indications: New Onset Angina <= 2 months, ACS <= 24 hrs, Suspected CAD, Cardiomyopathy Heart Failure: None Stress/Imaging Stress/Image Study Performed: No Angina Classification Anginal Classification w/in 2 Weeks: CCS III CAD Presentations: Unstable angina. Non-STEMI. 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 The risks and benefits of the procedure as well as a full d escription of our services here and current unavailability of surgical backup were fully explained to the patient and/or their significant other prior to the catheterization. The Timeout was completed, verifying the correct patient and procedure. The patient's procedural site was prepped and draped in the usual fashion. Local anesthetic was given subcutaneously to right groin region with Lidocaine 2%. Using a modified Seldinger technique, arterial access was obtained via the right femoral artery, a 4 Fr sheath was inserted Left Coronary Artery selective angiography was performed in multiple views us ing a 4 Fr. JL5 catheter. Right Coronary Artery selective angiography was then performed in multiple views using a 4 Fr. 3DRC catheter. Left Ventriculography was performed in MARTE projection using a 4 Fr . Pigtail catheter. LV to AO pullback pressures were then recorded.The arterial sheath was pulled and manual compression applied until hemostasis is achieved. CORONARY ANGIOGRAPHY DOMINANCE: Co- Dominant LEFT HEART ASSESSMENT Left Ventricular Ejection Fraction: by LV Gram 50 % Apical Akinesis Elevated Left Ventricular End Diastolic Pressure LVEDP: 25 mmHg LEFT MAIN: Angiographically normal LEFT ANTERIOR DECENDING ARTERY: Angiographically normal CIRCUMFLEX ARTERY: Angiographically normal RIGHT CORONARY ARTERY: Angiographically normal VALVE FINDINGS: Normal Aortic Valve function AORTIC ROOT: Angiographically normal COMPLICATIONS No Complications PROCEDURE MEDICATIONS Versed 1 mg IV Versed 1 mg IV Oxygen: 2 L/min via nasal cannula SUMMARY OF HEMODYNAMIC DATA Time AIR REST ECG 07:46:59 AO 110/78 (95) SA 08:20:06 LV 130/0, 27 08:27:15 LV 131/-3, 25 08:27:23 LV 116/7, 30 08:28:38 LV 115/4, 26 08:28:44 LVp 115/4, 27 08:28:49 AOp 112/66 (86) 08:28:54 Signed By Chaz Pathak MD On 11/24/2017 08:58:06 Chaz Pathak MD
--- NOTE | 2017-11-24 11:46 | CASEMGMT ---
jesús to Face with patient for initial transition planning/care coordination assessment. MARGARET EDWARD introduced self and role at [facility], pt voices understanding and consents to assessment at this time. Pt is sitting up in bed in no distress at this time. Pt is A/O x4 at this time and answers all questions appropriately at this time. Care providers, pharmacy, and demographics verified. See attached link. Pt voices no further concerns/needs at this time. Advised pt to ask for CM if any further questions/concerns/needs arise, voices understanding. PLAN: [place] MARGARET EDWARD
--- NOTE | 2017-11-24 12:28 | DCINST_ITS ---
- Discharge Diagnoses Current Active Problems: Current Active and Chronic Problems Unstable angina (Acute) NSTEMI (non-ST elevated myocardial infarction) (Acute) Hypertension (Chronic) Reason(s) for Visit for Discharge Instructions: Chest pain You will use the following diet at home:: Cardiac Your food should be the consistency of: Regular Your liquids should be the consistency of: Regular/Thin Discharge Activity: Return to Normal Activity Allergies/Adverse Reactions: Allergies No Known Allergies Allergy (Verified 11/23/17 10:40) Medications to take at Discharge Pnv No.122/Iron/Folic Acid [ Multi Tablet] 1 each PO DAILY 11/23/17 Aspirin E.C. [Ecotrin] 81 mg PO DAILY@0800 #30 tablet 11/24/17 Atorvastatin Calcium [Lipitor] 40 mg PO QHS #30 tablet 11/24/17 Valsartan/Hydrochlorothiazide [Valsartan-Hctz 320-12.5 mg Tab] 1 each PO DAILY 11/24/17 The following prescriptions were given: Aspirin E.C. [Ecotrin] 81 mg PO DAILY@0800 #30 tablet Atorvastatin Calcium [Lipitor] 40 mg PO QHS #30 tablet Primary Care Physician: Palmer Arguello DO [Primary Care Provider] - Please follow up with your Primary Care Physician in: within 1-2 weeks Test Results: Test results from this visit will be discussed in further detail at your follow- up appointment, if applicable. Please Follow Up With: Chaz Pathak MD When: within 2 weeks Proposed Discharge Date: 11/24/17
--- NOTE | 2017-11-24 12:30 | DS.PCM_ITS ---
Discharge Date and Diagnosis - Problem List Patient Problems: Active and Suspected Problems Unstable angina (Acute) NSTEMI (non-ST elevated myocardial infarction) (Acute) Date of Admission: 11/23/17 Date of Discharge: 11/24/17 - Primary Discharge Diagnosis Active and Suspected Problems Unstable angina (Acute) NSTEMI (non-ST elevated myocardial infarction) (Acute) Relative hypotension - Secondary Discharge Diagnosis Chronic Problems Hypertension (Chronic) Hospital Course and Treatment Imaging Results: Clinical Impression(s) from Imaging Studies Chest X-Ray 11/23/17 11:24 IMPRESSION: Normal x-ray examination of the chest. Electronically Signed: Michael Hoffmann MD at 11:45 EDT Tel , Service support , Cardiology - [facility] Operations: None Procedures: Cardiac catheterization Summary of Care Provided: 52 year old F with PMHx of hypertension, who comes with chest pain ongoing for 6 days. Chest pain described as substernal, pressure-like, nonradiating worse with exertion for the first 2 days. Subsequently chest pain occured at rest and with minimal exertion. Patient was admitted to the telemetry floor for management as NSTEMI/UA, TANMAY score of 2. She was started on heparin drip, loaded on Brilinta. Cardiology was consulted. She had a cardiac cath done on 06/07/2017 that showed clean coronaries, EF of 50 %, Takasubo cardiomyopathy was seen. At discharge, her physical exam was unremarkable. Blood pressure was slightly low. Patient was discharged on metoprolol 25 mg p.o. twice daily. Her home losartan hydrochlorothiazide was stopped, discharged on atorvastatin 20mg daily and would have to follow up with Dr. Pathak in the office in 1 week for blood pressure check. Discharge Diet: Low fat/ Low Cholesterol, 2000 mg Sodium Diet Discharge Activity: Return to Normal Activity Home Medications: Medications to take at Discharge Pnv No.122/Iron/Folic Acid [ Multi Tablet] 1 each PO DAILY 11/23/17 Aspirin E.C. [Ecotrin] 81 mg PO DAILY@0800 #30 tab 11/24/17 Atorvastatin Calcium [Lipitor] 20 mg PO QHS #30 tab 11/24/17 Metoprolol Tartrate [Lopressor (beta dona)] 25 mg PO BID #60 tab 11/24/17 Following Prescrptions Were Given to Patient: Aspirin E.C. [Ecotrin] 81 mg PO DAILY@0800 #30 tab Atorvastatin Calcium [Lipitor] 20 mg PO QHS #30 tab Metoprolol Tartrate [Lopressor (beta dona)] 25 mg PO BID #60 tab Primary Care Physician: Palmer Arguello DO [Primary Care Provider] - Please follow up with your Primary Care Physician in: within 1-2 weeks Please Follow Up With: Chaz Pathak MD When: within 2 weeks Disposition: Home Minutes spent on discharge:: 40 Patient Condition:: Stable Medical Necessity - Tobacco Use Smoking Status: Never smoker Tobacco Use: Non-smoker Meaningful Use Info Meaningful Use Diagnoses (Choose all that apply): None applicable Code Visit Inpatient E&M: 13251 Disch Hosp
--- NOTE | 2017-11-24 17:08 | PCM.PN.CARD ---
Subjectve: The patient was evaluated earlier this day. She had undergone diagnostic cardiac catheterization as previously recommended. She had no obvious post cardiac catheterization related adverse events. Objective: Vital Signs Temp Pulse Resp BP Pulse Ox 98.6 F 70 16 89/55 L 97 11/24/17 10:00 11/24/17 13:00 11/24/17 13:00 11/24/17 13:00 11/24/17 13:00 Oxygen Delivery Method Room Air Weight: 204 lb 9.423 oz Body Mass Index (BMI) 31.9 Intake and Output for Last 24 Hours 11/22/17 11/23/17 11/24/17 23:59 23:59 23:59 Intake Total 778 / 778 509.1 / 509.1 Balance 778 / 778 509.1 / 509.1 General: Awake, Alert, Oriented x 3, Cooperative, No Acute Distress HEENT: Atraumatic, Normocephalic, PERRL, EOMI, Sclera Non Icteric Oral: Moist Mucosa Neck: Supple, Good ROM Lungs: Clear to auscultation Cardiovascular: Regular Rhythm, Normal S1, Normal S2 Murmur Murmur: Grade 3/6, Harsh, Mid Systolic, LLSB, LVOT, Sternal Notch Vascular: Normal Femoral Pulses Abdomen: Bowel Sounds Present, Soft, Non Tender Extremities: No Cyanosis, No Clubbing, No edema Neurological: No Focal Motor or Sensory Deficit Psych/Mental Status: Appropriate, Normal Affect 11/23/17 17:48: Troponin I 0.149 H 11/23/17 18:57: APTT 133.5 H* 11/23/17 21:21: Troponin I 0.121 H 11/23/17 23:57: Urine Color Yellow, Urine Clarity Sl. Cloudy, Urine pH 6.0, Ur Specific [place] 1.010, Urine Protein Negative, Urine Glucose (UA) Normal, Urine Ketones Negative, Urine Occult Blood Negative, Urine Nitrite Negative, Urine Bilirubin Negative, Urine Urobilinogen 1 H, Ur Leukocyte Esterase 25 H 11/24/17 02:50: PT 12.8, INR 1.0 11/24/17 02:50: Sodium 136, Potassium 3.6, Chloride 100, Carbon Dioxide 28.0, Anion Gap 8, BUN 12, Creatinine 0.93, Est GFR (MDRD) Af Amer 82, Est GFR (MDRD) Non-Af 68, BUN/Creatinine Ratio 12.9, Glucose 91, Calcium 8.8, Triglycerides 117, Cholesterol 158, LDL Cholesterol 39, VLDL Cholesterol 23, HDL Cholesterol 96 11/24/17 02:50: APTT 29.9 11/24/17 02:50: WBC 5.1, RBC 3.79 L, Hgb 12.8, Hct 37.8, MCV 99.7 H, MCH 33.8 H, MCHC 33.9, RDW 13.2, RDW Differential 47.9 H, Plt Count 117 L, MPV 9.8, Immature Gran % (Auto) 0.200, Neut % (Auto) 69.2, Lymph % (Auto) 23.9, Jay % (Auto) 4.7, Eos % (Auto) 1.6, Baso % (Auto) 0.4, Absolute Neuts (auto) 3.5, Total Counted Not Reportable Rhythm: Sinus rhythm EKG: Sinus rhythm Cardiac Cath: Preliminary report: Coronary arteries: Angiographically normal: Left ventricle with left ventricular apical akinesis: Overall pattern appearing compatible with a stress-induced cardiomyopathy Medical Necessity - Tobacco Use Smoking Status: Never smoker Tobacco Use: Non-smoker Assessment/Plan 1. Unstable angina pectoris The patient presents with symptoms concerning for unstable angina pectoris. She has been undergoing noninvasive evaluation thus far. She has been treated medically. She appears to be symptomatically improved at rest. She will continue medical management. She has undergone evaluation with diagnostic cardiac catheterization. It does not appear she has angiographically significant CAD to explain her symptoms. Her symptoms appear compatible with an underlying stress-induced cardiomyopathy. 2. Non-ST segment elevation [place] The patient has the aforementioned clinical presentation as well as objective findings with an abnormal troponin I level and ECG changes with waxing and waning T-wave changes. She has undergone evaluation as noted above. Thus far her findings, status post echocardiogram and cardiac catheterization, appear compatible with an underlying stress-induced cardiomyopathy. She will need continued medical management and future outpatient follow-up with echocardiographic studies to monitor her left ventricular wall motion and overall systolic function. 3. Hypertension The patient states her blood pressures been well controlled on her medications. Her blood pressures will be followed. Her medications will be adjusted as she goes to her evaluation and care. Comment: The above was discussed with the patient, her family members present, and the [facility] hospitalist staff. This note was generated with [employer] software. It may contain incorrect words, spelling, and punctuation that were not noted in checking the note before signing.
--- NOTE | 2017-11-24 17:11 | PN.CARD_ITS ---
Subjectve: The patient was evaluated earlier this day. She had undergone diagnostic cardiac catheterization as previously recommended. She had no obvious post cardiac catheterization related adverse events. Objective: Vital Signs Temp Pulse Resp BP Pulse Ox 98.6 F 70 16 89/55 L 97 11/24/17 10:00 11/24/17 13:00 11/24/17 13:00 11/24/17 13:00 11/24/17 13:00 Oxygen Delivery Method Room Air Weight: 204 lb 9.423 oz Body Mass Index (BMI) 31.9 Intake and Output for Last 24 Hours 11/22/17 11/23/17 11/24/17 23:59 23:59 23:59 Intake Total 778 / 778 509.1 / 509.1 Balance 778 / 778 509.1 / 509.1 General: Awake, Alert, Oriented x 3, Cooperative, No Acute Distress HEENT: Atraumatic, Normocephalic, PERRL, EOMI, Sclera Non Icteric Oral: Moist Mucosa Neck: Supple, Good ROM Lungs: Clear to auscultation Cardiovascular: Regular Rhythm, Normal S1, Normal S2 Murmur Murmur: Grade 3/6, Harsh, Mid Systolic, LLSB, LVOT, Sternal Notch Vascular: Normal Femoral Pulses Abdomen: Bowel Sounds Present, Soft, Non Tender Extremities: No Cyanosis, No Clubbing, No edema Neurological: No Focal Motor or Sensory Deficit Psych/Mental Status: Appropriate, Normal Affect 11/23/17 17:48: Troponin I 0.149 H 11/23/17 18:57: APTT 133.5 H* 11/23/17 21:21: Troponin I 0.121 H 11/23/17 23:57: Urine Color Yellow, Urine Clarity Sl. Cloudy, Urine pH 6.0, Ur Specific [place] 1.010, Urine Protein Negative, Urine Glucose (UA) Normal, Urine Ketones Negative, Urine Occult Blood Negative, Urine Nitrite Negative, Urine Bilirubin Negative, Urine Urobilinogen 1 H, Ur Leukocyte Esterase 25 H 11/24/17 02:50: PT 12.8, INR 1.0 11/24/17 02:50: Sodium 136, Potassium 3.6, Chloride 100, Carbon Dioxide 28.0, Anion Gap 8, BUN 12, Creatinine 0.93, Est GFR (MDRD) Af Amer 82, Est GFR (MDRD) Non-Af 68, BUN/Creatinine Ratio 12.9, Glucose 91, Calcium 8.8, Triglycerides 117 , Cholesterol 158, LDL Cholesterol 39, VLDL Cholesterol 23, HDL Cholesterol 96 11/24/17 02:50: APTT 29.9 11/24/17 02:50: WBC 5.1, RBC 3.79 L, Hgb 12.8, Hct 37.8, MCV 99.7 H, MCH 33.8 H , MCHC 33.9, RDW 13.2, RDW Differential 47.9 H, Plt Count 117 L, MPV 9.8, Immature Gran % (Auto) 0.200, Neut % (Auto) 69.2, Lymph % (Auto) 23.9, [place] % ( Auto) 4.7, Eos % (Auto) 1.6, Baso % (Auto) 0.4, Absolute Neuts (auto) 3.5, Total Counted Not Reportable Rhythm: Sinus rhythm EKG: Sinus rhythm Cardiac Cath: Preliminary report: Coronary arteries: Angiographically normal: Left ventricle with left ventricular apical akinesis: Overall pattern appearing compatible with a stress-induced cardiomyopathy Medical Necessity - Tobacco Use Smoking Status: Never smoker Tobacco Use: Non-smoker Assessment/Plan 1. Unstable angina pectoris The patient presents with symptoms concerning for unstable angina pectoris. She has been undergoing noninvasive evaluation thus far. She has been treated medically. She appears to be symptomatically improved at rest. She will continue medical management. She has undergone evaluation with diagnostic cardiac catheterization. It does not appear she has angiographically significant CAD to explain her symptoms. Her symptoms appear compatible with an underlying stress-induced cardiomyopathy. 2. Non-ST segment elevation [place] The patient has the aforementioned clinical presentation as well as objective findings with an abnormal troponin I level and ECG changes with waxing and waning T-wave changes. She has undergone evaluation as noted above. Thus far her findings, status post echocardiogram and cardiac catheterization, appear compatible with an underlying stress-induced cardiomyopathy. She will need continued medical management and future outpatient follow-up with echocardiographic studies to monitor her left ventricular wall motion and overall systolic function. 3. Hypertension The patient states her blood pressures been well controlled on her medications. Her blood pressures will be followed. Her medications will be adjusted as she goes to her evaluation and care. Comment: The above was discussed with the patient, her family members present, and the [facility] hospitalist staff. This note was generated with [employer] software. It may contain incorrect words, spelling, and punctuation that were not noted in checking the note before signing.
== END 2017-11-24 16:22 | disposition home or self-care (01) | DRG 282 ==
LOC: ED 11:17 → PCU 12:57
PROVIDERS: Internal Medicine Cardiovascular Disease; Admitting Provider Internal Medicine; Emergency Provider Emergency Medicine; Family Provider Family Medicine; PCP Family Medicine; Visit Provider Internal Medicine
DX: I21.4 Non-ST elevation (NSTEMI) myocardial infarction (principal); I20.0 Unstable angina; I10 Essential (primary) hypertension; F41.9 Anxiety disorder, unspecified; Z79.899 Other long term (current) drug therapy
CPT/HCPCS: 36415; 71045; 80048; 80061; 80076; 81002; 81025; 84484; 85025; 85610; 85730; 93005; 93306; 93458; 99152; 99153; 99251; 99285; J7030; Q9957; A4216; C1769; C1894; C8929; G0463; Q9967

== ENCOUNTER → 2017-12-21 12:55 | Outpatient (CLI) | payer BC, SELFPAY ==
--- NOTE | 2017-12-21 12:59 | PCM.CR.HP2 ---
CR - History & Physical - General Arrival date:: 12/21/17 Arrival time:: 13:00 Date of Referral:: 11/23/17 Date of CR Evaluation:: 12/21/17 Referring Physician: Dr. Chaz Pathak Primary Diagnosis: I21.4 - History of Present Cardiac Event Onset Date: Enter Onset Date of cardiac illnesses in Comment field below Acute Myocardial Infarction within 12 months:: Yes - Medications Home Medications: Ambulatory Orders Medication Instructions Recorded Aspirin E.C. [Ecotrin] 81 mg PO DAILY@0800 #30 tab 11/24/17 Atorvastatin Calcium [Lipitor] 20 mg PO QHS #30 tab 11/24/17 Metoprolol Tartrate [Lopressor 25 mg PO BID #60 tab 11/24/17 (beta dona)] losartan 100 1 tab PO QDAY #30 tab 12/08/17 mg-hydrochlorothiazide 12.5 mg tablet - Allergies Allergies/Adverse Reactions: Allergies No Known Allergies Allergy (Verified 12/08/17 09:23) - Sleep Disorder Evaluation Hx of Sleep Apnea: No Do you snore loudly (louder than talking or can be heard through closed doors)?: No Do you often feel tired/ fatigued/ sleepy during daytime?: No Has anyone observed you stop breathing during sleep?: No History of Hypertension (for STOP score): Yes STOP Results: Negative Advanced Directives - Advanced Directives Power of Admissions Gate Attendant: No Living Will: No Advance Directives Information Provided: No Advance Directives on File: No DNR Order?:: No Past Medical History - Past Medical Illness Medical History: Past Medical History Takotsubo cardiomyopathy (Chronic) I51.81 Unstable angina (Acute) I20.0 NSTEMI (non-ST elevated myocardial infarction) (Acute) I21.4 Hypertension (Chronic) I10 - Past Surgical History Surgical History: no surgical history - Family History Summary Family History: Family History (Last Updated 11/25/17 @ 14:53 by Denita Estrada) Father Hypertension Mother Hypertension Sister Hypertension Social History - Smoking History Smoking Status: Former smoker Packs Smoked per Day: 1.5 Hx Tobacco Use: Yes Hx Smoking Exposure: Yes - Alcohol Use Alcohol Usage: Yes - socially - Substance Abuse Hx Substance Use: No - Occupation Occupation (List type of work in comments):: Employed Hours worked per day:: 12 - [employer] - Hobbies, Recreation, Social Activities Hobbies: Reading, Other - fishing Recreational Activities: I am able to engage in all my recreational activities Social Environment - Status Marital Status: Single - Current Living Arrangements Living Environment:: Alone - Children How many children do you have?: 2 Do any of your children live nearby?: Yes - Safety Do you feel safe in your surroundings?: Yes - Assistance Do you need any assistance at home?: none Review of Systems - Review of Systems Hints: Right click = Denies (Slash). Left click = Reports ([place]) Review of Present Symptoms: Reports: Shortness of Breath at Rest, Shortness of Breath with Exertion, Angina - heaviness, Fatigue, Appetite - Normal, Sleep - Normal. Denies: PVD, Operative Discomfort, Wound Healing, Dizziness/Lightheadedness, Heart Arrhythmia/Irregularities, Appetite - Special Diet, Sexual Changes - Pain Is Patient Pain Free?: Yes Pain Location: none Risk Factor Assessment - Chief Complaint Chief Complaint: NSTEMI - Vital Signs Pulse Ox: 97 - Pulse Pulse Rate: 85 Pulse Rhythm: Regular - Hypertension Blood Pressure Sitting - Left Arm: 120/80 - Stress Stress: Long-standing, Work-related, Home/Family - Diabetes Nutrition Referral for Diabetes: No - Obesity Height: 1.7 m Weight:: 92.986 kg Weight in Pounds: 205.0 lbs Weight Source: Standing Scale Body Mass Index (BMI): 32.1 Nutritional Referral for Obesity: No - Risk Stratification Risk Guidelines: Moderate Risk: Risk Factor for Smoking, Risk Factor for Dyslipidemia, Risk Factor for Diabetes, Risk Factor for Obesity, Risk Factor for Hypertension, Risk Factor for Sedentary Lifestyle, Risk Factor for Depression - For Smoking Smoking Risk Guidelines: Smoking Low Risk: None or quit greater than 6 months ago. Smoking Moderate Risk: Smoker or quit 6 months or less ago. Smoking High Risk: Smoker - For Dyslipidemia Dyslipidemia Risk Guidelines: Low Risk: Moderate Risk: High Risk: 15-25% fat 25.1-29% fat >/= 30% fat. <7% sat fat 7-9% sat fat >9% sat fat. <150 mg chol 150-299 mg chol >/= 300 mg chol. LDL <100 LDL 100-129 LDL >/= 130. Chol/HDL ratio <5.0 Chol/HDL ratio 5.0-6.0 Chol/HDL ratio >6.0. Triglycerides <100 Triglycerides 100-149 Triglycerides >/= 150 - For Diabetes Mellitus Diabetes Risk Guidelines: Diabetes Low Risk: HgA1c <6.5% and/or FBG <120. Diabetes Moderate Risk: HgA1c 6.6-7.9% and/or FBG 120-180. Diabetes High Risk: HgA1c >/= 8% and/or FBG >180 - For Obesity/Overweight Obesity/Overweight Risk Guidelines: Obesity Low Risk: BMI <25.0. Obesity Moderate Risk: BMI 25-29.9. Obesity High Risk: BMI >/= 30.0 - For Hypertension Hypertension Risk Guidelines: Hypertension Low Risk: Systolic <120 and Diastolic <80. Hypertension Moderate Risk: Systolic 120-139 and Diastolic 80-89. Hypertension High Risk: Systolic >/= 140 and Diastolic >/= 90 - For Sedentary Lifestyle Sedentary Lifestyle Risk Guidelines: Sedentary Lifestyle Low Risk: >/= 1,500 kcal/week. Sedentary Lifestyle Moderate Risk: 700-1,499 kcal/week. Sedentary Lifestyle High Risk: < 700 kcal/week - For Depression Depression Risk Guidelines: Depression Low Risk: Not clinically depressed. Depression Moderate Risk: Mildly depressed. Depression High Risk: Clinically depressed - Family History Family History: Family History (Last Updated 11/25/17 @ 14:53 by Denita Estrada) Father Hypertension Mother Hypertension Sister Hypertension Motivation - Motivation to Participate On a scale of 1 to 10, how prepared are you to commit to attending program?: 8 What do you see as barriers to successfully being able to complete the program?: none What do you see as the benefits of succesfully completing the program? In other words, what do you hope to get out of participating in the program?: confidence Are there issues you are dealing with that will interfere with completing the program?: none Do you have a spouse or signficant other, family or friends who will help support you to complete the program?: yes
--- NOTE | 2017-12-21 13:03 | CR.HP_ITS ---
CR - History & Physical - General Arrival date:: 12/21/17 Arrival time:: 13:00 Date of Referral:: 11/23/17 Date of CR Evaluation:: 12/21/17 Referring Physician: Dr. Chaz Pathak Primary Diagnosis: I21.4 - History of Present Cardiac Event Onset Date: Enter Onset Date of cardiac illnesses in Comment field below Acute Myocardial Infarction within 12 months:: Yes - Medications Home Medications: Ambulatory Orders Medication Instructions Recorded Aspirin E.C. [Ecotrin] 81 mg PO DAILY@0800 #30 tab 11/24/17 Atorvastatin Calcium [Lipitor] 20 mg PO QHS #30 tab 11/24/17 Metoprolol Tartrate [Lopressor 25 mg PO BID #60 tab 11/24/17 (beta dona)] losartan 100 1 tab PO QDAY #30 tab 12/08/17 mg-hydrochlorothiazide 12.5 mg tablet - Allergies Allergies/Adverse Reactions: Allergies No Known Allergies Allergy (Verified 12/08/17 09:23) - Sleep Disorder Evaluation Hx of Sleep Apnea: No Do you snore loudly (louder than talking or can be heard through closed doors)? : No Do you often feel tired/ fatigued/ sleepy during daytime?: No Has anyone observed you stop breathing during sleep?: No History of Hypertension (for STOP score): Yes STOP Results: Negative Advanced Directives - Advanced Directives Power of Floor Service Worker [place]: No Living Will: No Advance Directives Information Provided: No Advance Directives on File: No DNR Order?:: No Past Medical History - Past Medical Illness Medical History: Past Medical History Takotsubo cardiomyopathy (Chronic) I51.81 Unstable angina (Acute) I20.0 NSTEMI (non-ST elevated myocardial infarction) (Acute) I21.4 Hypertension (Chronic) I10 - Past Surgical History Surgical History: no surgical history - Family History Summary Family History: Family History (Last Updated 11/25/17 @ 14:53 by Denita Estrada) Father Hypertension Mother Hypertension Sister Hypertension Social History - Smoking History Smoking Status: Former smoker Packs Smoked per Day: 1.5 Hx Tobacco Use: Yes Hx Smoking Exposure: Yes - Alcohol Use Alcohol Usage: Yes - socially - Substance Abuse Hx Substance Use: No - Occupation Occupation (List type of work in comments):: Employed Hours worked per day:: 12 - [employer] - Hobbies, Recreation, Social Activities Hobbies: Reading, Other - fishing Recreational Activities: I am able to engage in all my recreational activities Social Environment - Status Marital Status: Single - Current Living Arrangements Living Environment:: Alone - Children How many children do you have?: 2 Do any of your children live nearby?: Yes - Safety Do you feel safe in your surroundings?: Yes - Assistance Do you need any assistance at home?: none Review of Systems - Review of Systems Hints: Right click = Denies (Slash). Left click = Reports ([place]) Review of Present Symptoms: Reports: Shortness of Breath at Rest, Shortness of Breath with Exertion, Angina - heaviness, Fatigue, Appetite - Normal, Sleep - Normal. Denies: PVD, Operative Discomfort, Wound Healing, Dizziness/ Lightheadedness, Heart Arrhythmia/Irregularities, Appetite - Special Diet, Sexual Changes - Pain Is Patient Pain Free?: Yes Pain Location: none Risk Factor Assessment - Chief Complaint Chief Complaint: NSTEMI - Vital Signs Pulse Ox: 97 - Pulse Pulse Rate: 85 Pulse Rhythm: Regular - Hypertension Blood Pressure Sitting - Left Arm: 120/80 - Stress Stress: Long-standing, Work-related, Home/Family - Diabetes Nutrition Referral for Diabetes: No - Obesity Height: 1.7 m Weight:: 92.986 kg Weight in Pounds: 205.0 lbs Weight Source: Standing Scale Body Mass Index (BMI): 32.1 Nutritional Referral for Obesity: No - Risk Stratification Risk Guidelines: Moderate Risk: Risk Factor for Smoking, Risk Factor for Dyslipidemia, Risk Factor for Diabetes, Risk Factor for Obesity, Risk Factor for Hypertension, Risk Factor for Sedentary Lifestyle, Risk Factor for Depression - For Smoking Smoking Risk Guidelines: Smoking Low Risk: None or quit greater than 6 months ago. Smoking Moderate Risk: Smoker or quit 6 months or less ago. Smoking High Risk: Smoker - For Dyslipidemia Dyslipidemia Risk Guidelines: Low Risk: Moderate Risk: High Risk: 15-25% fat 25.1-29% fat >/= 30% fat. <7% sat fat 7-9% sat fat >9% sat fat. <150 mg chol 150-299 mg chol >/= 300 mg chol. LDL <100 LDL 100-129 LDL >/= 130. Chol/HDL ratio <5.0 Chol/HDL ratio 5.0-6.0 Chol/HDL ratio >6.0. Triglycerides <100 Triglycerides 100-149 Triglycerides >/= 150 - For Diabetes Mellitus Diabetes Risk Guidelines: Diabetes Low Risk: HgA1c <6.5% and/or FBG <120. Diabetes Moderate Risk: HgA1c 6.6-7.9% and/or FBG 120-180. Diabetes High Risk: HgA1c >/= 8% and/or FBG >180 - For Obesity/Overweight Obesity/Overweight Risk Guidelines: Obesity Low Risk: BMI <25.0. Obesity Moderate Risk: BMI 25-29.9. Obesity High Risk: BMI >/= 30.0 - For Hypertension Hypertension Risk Guidelines: Hypertension Low Risk: Systolic <120 and Diastolic <80. Hypertension Moderate Risk: Systolic 120-139 and Diastolic 80-89. Hypertension High Risk: Systolic >/= 140 and Diastolic >/= 90 - For Sedentary Lifestyle Sedentary Lifestyle Risk Guidelines: Sedentary Lifestyle Low Risk: >/= 1 ,500 kcal/week. Sedentary Lifestyle Moderate Risk: 700-1,499 kcal/week. Sedentary Lifestyle High Risk: < 700 kcal/week - For Depression Depression Risk Guidelines: Depression Low Risk: Not clinically depressed. Depression Moderate Risk: Mildly depressed. Depression High Risk: Clinically depressed - Family History Family History: Family History (Last Updated 11/25/17 @ 14:53 by Denita Estrada) Father Hypertension Mother Hypertension Sister Hypertension Motivation - Motivation to Participate On a scale of 1 to 10, how prepared are you to commit to attending program?: 8 What do you see as barriers to successfully being able to complete the program? : none What do you see as the benefits of succesfully completing the program? In other words, what do you hope to get out of participating in the program?: confidence Are there issues you are dealing with that will interfere with completing the program?: none Do you have a spouse or signficant other, family or friends who will help support you to complete the program?: yes
[2017-12-21 13:37] VITALS: BP 120/80; PULSE 85; O2SAT 97; BMI 32.1
--- NOTE | 2017-12-21 13:42 | CR.ITP_ITS ---
General Information - General Information Admitting Diagnosis: I21.4 NSTEMI - Education/Goals Barriers to Learning: None Cardiac Rehabilitation Goals: 1. Maintain the individual as the primary focus of care. 2. To improve the patient's quality of life. 3. Identification of cardiac risk factors and provide cardiac risk factor management. 4. Enhance the psychosocial status of the patient. 5. Reconditioning enough to allow the patient to resume customary activities. 6. Control symptoms of cardiac disease Scale for measuring improvement of personal goals: Enter appropriate number in Comments. 2 = Unchanged. 3 = Slightly Better. 4 = Moderate Improvement. 5 = Met my Goal Personal Goals: Initial Assessment: Improve management of stress and emotions, Improve energy level, Get back to work, or to resume activities faster Exercise - Initial Assessment - Visit Date of Eval: 12/21/17 - Initial Eval - Stages of Change Stages of Change:: Contemplate - Exercise Prescription Mode:: Treadmill, Biodyne, Rower, Airdyne, NuStep, Arm Ergometer Angina with exercise?: No Target Heart Rate:: 127-136 - Hypertension Do any of the following apply?: Yes Resting Blood Pressure:: 120/80 - Intervention Home Exercise/Activity Goal:: Moderate Exercise 30 min/day x 5 days/wk - Education Goals:: Warm-up, RPE DREW Scale, S/S, Safe Exercise, Self-Monitoring - Exercise Program Goals Exercise Program Goals: Aerobic Activity >30 min, B/P <130/80 Nutrition - Initial Assessment - Program Goals Nutrition Program Goals: LDL <70. Total Cholesterol <200. HDL >45. Triglycerides <150. HgbA1C <7%. BMI <25 - Visit Date of Assessment:: 12/21/17 - Stages of Change Stages of Change:: Contemplate - Diabetes Diabetes:: No - Weight Management Height: 1.7 m Weight:: 92.986 kg Total Score:: 4 - Intervention Referral to dietitian:: No Referral to Diabetic Clinic:: No Will attend diet classes:: Yes - Education Gave educational materials for:: Signs & symptoms of hypoglycemia, Signs & symptoms of hyperglycemia, Relate diabetes to coronary artery disease, Healthy eating Tobacco - Initial Assessment - Program Goals Tobacco Program Goals: Complete smoking cessation. Attend education classes. Improve Knowledge Test score - Stage of Change Stages of Change:: Contemplate - Learning Barriers Total Score:: 15 - Family Support Do you have family support?: Yes - Tobacco Use Tobacco Use: Non-smoker How long ago did you quit using tobacco products?: Greater than or equal to 6 months ago Do you use smokeless tobacco?: No - Intervention Smoking Cessation Referral:: No Individual Education/Counseling:: No Education Schedule Given:: Yes - Education Gave educational material for:: Tobacco triggers, Coronary artery disease, Risk factors, Medical compliance, Cardiac A&P, Angina signs & symptoms Psychosocial - Initial Assess - Target Goals Target Goals: Assess presence or absence of depression. Using a valid screening tool, maximizes coping skills. Positive support system - Stages of Change Stages of Change:: Contemplate - Psychosocial Test Tool Used:: HANDS Depression Questionnaire Total Mood Screening Score:: 7 Self-Efficacy Score:: 2 - Intervention PS - Interventions: Yes Attend Stress Management Classes, Yes Uses Stress Management Skills, No Referral to Mental Health, No Referral to [facility] Case Management, No Referral to Physician - Education Gave educational materials for:: Coping techniques, Signs & symptoms of depression, Stress management, Relaxation techniques - Assistive Devices Assistive Devices:: None Fall Risk Assessed:: Yes Patient Health Questionnaire Initial Assessment 1. Little interest or pleasure in doing things: Several days 2. Feeling down, depressed, or hopeless: Several days 3. Trouble falling or staying asleep, or sleeping too much: More than half the days 4. Feeling tired or having little energy: More than half the days 5. Poor appetite or overeating: Not at all 6. Feeling bad about yourself -- or that you are a failure or have let yourself or your family down: Not at all 7. Trouble concentrating on things, such as reading the newspaper or watching television: Not at all 8. Moving or speaking so slowly that other people could have noticed. Or the opposite - being so fidgety or restless that you have been moving around a lot more than usual: Several days 9. Thoughts that you would be better off , or of hurting yourself in some way: Not at all How difficult have these problems made it for you to do your work, take care of things at home, or get along with other people?: Somewhat difficult Total Score: 7 LYRIC-Q SV Test - Statements CAD is a disease of the arteries in the heart: False Examples of risk factors for heart disease: True Angina is chest pain or discomfort: I Don't Know The benefits of resistance training include: True Eating more meat and dairy products: False Anti-platelet medications such as aspirin are important: True The only effective way to manage stress: I Don't Know An exercise warm-up slowly increases heart rate: True Prepared, processed foods usually have high sodium: True Depression is common after a heart attack: True The statin medications lower cholesterol: I Don't Know To control blood pressure, lower the amount of sodium: True If someone gets chest discomfort during walking: False Transfats are partially hydrogenated vegetable oils: True Sleep apnea that is not treated increases the risk: I Don't Know To control cholesterol, one should become a vegetarian: False Someone knows if he/she is exercising at the right level: I Don't Know Diabetes cannot be prevented with exercise & health eating: False Stress is a large risk for heart attack: True A diet that can help lower blood pressure is rich in: True - Total Score Total Correct Responses: 15 Self-Efficacy Initial Assessment We would like to know how confident you are in doing certain activities. Please select your confidence level for:: Select your confidence level for the following using the scale 1-10 where 1 is not at all confident and 10 is totally confident. Your score is the average of all 6 responses. Fatigue: How confident are you that you can keep the fatigue caused by your disease from interfering with the things you want to do? Select Number: 3 Physical Discomfort or Pain: How confident are you that you can keep the physical discomfort or pain of your disease from interfering with the things you want to do? Select Number: 3 Emotional Distress: How confident are you that you can keep the emotional distress caused by your disease from interfering with the things you want to do? Select Number: 2 Other Symptoms or Health Problems: How confident are you that you can keep other symptoms or health problems from interfering with the things you want to do? Select Number: 3 Different Tasks and Activities: How confident are you that you can do the different tasks and activities needed to manage your health condition so as to reduce your need to see a doctor? Select Number: 3 Medication: How confident are you that you can do things other than just taking medication to reduce how much your illness affects your everyday life? Select Number: 3 Total Score:: 2 Nutrition Survey - Nutrition Survey Instructions Scoring Instructions: Scoring is as follows: Yes = 1 points. No = 0 point. Patient score that is >/=12 is considered to be at potential nutritional risk and could benefit from a referral to a registered dietitian. - Nutrition Survey Initial Have you lost >10 lbs over the past 2 months without trying?: No Are you following a special diet at home for diabetes, low fat, or low salt?: No Are you interested in meeting with a dietitian for help understanding your diet? : No Do you eat less than 3 meals a day?: Yes Do you eat fatty meats ([place], sausage, ribs, etc), fried foods, desserts, large amounts of salad dressings, margarine, butter, or cheese most days?: Yes Do you have food allergies? [Enter types in comment field]: No Do you eat in restaurants more than 3 times a week?: No Do you season food with salt, seasoning salt, or garlic salt?: Yes Do you used canned, boxed, frozen meals, or soups, seasoning packets?: Yes Total Score:: 4
[2017-12-21 13:48] VITALS: BP 120/80
== END ==
PROVIDERS: Family Provider Family Medicine; PCP Family Medicine; Visit Provider Internal Medicine Cardiovascular Disease
DX: I21.4 Non-ST elevation (NSTEMI) myocardial infarction (principal)

== ENCOUNTER 2017-12-25 06:24 | Outpatient (RCR) | payer BC, SELFPAY | END 2018-01-01 23:59 | LOC: CR 06:24 | PROVIDERS: Family Provider Family Medicine; PCP Family Medicine; Visit Provider Internal Medicine Cardiovascular Disease | DX: I21.4 Non-ST elevation (NSTEMI) myocardial infarction (principal); I20.0 Unstable angina; I10 Essential (primary) hypertension | CPT/HCPCS: 93798 ==

== ENCOUNTER → 2017-12-30 10:55 | Outpatient (CLI) | payer BC, SELFPAY ==
--- NOTE | 2017-12-30 12:59 | STRESSREP ---
Stress Test Report Date: 12/30/2017 Procedure: Exercise tolerance test Indications: Chest pain; Takotsubo Syndrome Consent: Per the patient Procedure: The patient exercised on a Lucho protocol for 6 minutes completing Stage II achieving a peak heart rate of 184 bpm (108 % predicted maximal heart rate) with a peak blood pressure 150/70 mmHg and a peak MET capacity of approximately 7 MET's. The baseline ECG demonstrated normal sinus rhythm; T-wave abnormality (anterior, lateral, inferior). The peak exercise ECG demonstrated continued T-wave abnormality. There a rare PVC during exercise. The functional capacity was considered average. The patient had no complaint of chest discomfort during exercise or recovery. The examination was discontinued secondary to dyspnea and fatigue. Impression: 1. Technically adequate (percent predicted maximal heart rate greater than 85%) exercise tolerance test 2. Peak exercise ECG with continued T-wave abnormality 3. There was a rare PVC during exercise This note was generated with [employer] software. It may contain incorrect words, spelling, and punctuation that were not noted in checking the note before signing.
== END ==
LOC: CVS 10:56
PROVIDERS: Family Provider Family Medicine; PCP Family Medicine; Visit Provider Internal Medicine Cardiovascular Disease
DX: I21.4 Non-ST elevation (NSTEMI) myocardial infarction (principal)
CPT/HCPCS: 93017

== ENCOUNTER 2018-01-22 14:15 | Outpatient (RCR) | payer BC, SELFPAY ==
--- NOTE | 2018-01-27 09:02 | PCM.CR.ITP ---
General Information - General Information Admitting Diagnosis: NSTEMI - Education/Goals Cardiac Rehabilitation Goals: 1. Maintain the individual as the primary focus of care. 2. To improve the patient's quality of life. 3. Identification of cardiac risk factors and provide cardiac risk factor management. 4. Enhance the psychosocial status of the patient. 5. Reconditioning enough to allow the patient to resume customary activities. 6. Control symptoms of cardiac disease Scale for measuring improvement of personal goals: Enter appropriate number in Comments. 2 = Unchanged. 3 = Slightly Better. 4 = Moderate Improvement. 5 = Met my Goal Exercise - 30-day Assessment - Visit Date of Eval: 01/27/18 Session #:: 9 - Stages of Change Stages of Change:: Action - Exercise Prescription Mode:: Treadmill, Rower, Airdyne Frequency (x/week): 3 Duration:: 30 METs - Progression: 0.5-1 MET as tolerated: 4 Target Heart Rate:: 136-144 Max HR 146 - Hypertension Resting Blood Pressure:: 94/68 Peak Exercise Blood Pressure:: 158/90 - Intervention Home Exercise/Activity Goal:: Sitting Time <3 hrs/day - Education Goals:: Warm-up, RPE DREW Scale, S/S, Safe Exercise, Self-Monitoring - Exercise Program Goals Exercise Program Goals: Aerobic Activity >30 min, B/P <130/80 Nutrition - 30-Day Assessment - Program Goals Nutrition Program Goals: LDL <70. Total Cholesterol <200. HDL >45. Triglycerides <150. HgbA1C <7%. BMI <25 - Visit Date of Eval: 01/27/18 - Stages of Change Stages of Change:: Action - Diabetes Diabetes:: No - Weight Management Weight:: 90.265 kg - Intervention Referral to dietitian:: No Referral to Diabetic Clinic:: No Will attend diet classes:: Yes - Education Attended class for:: Signs & symptoms of hypoglycemia, Signs & symptoms of hyperglycemia, Relate diabetes to coronary artery disease, Healthy eating Tobacco - 30-Day Assessment - Program Goals Tobacco Program Goals: Complete smoking cessation. Attend education classes. Improve Knowledge Test score - Stage of Change Stages of Change:: Action - Learning Barriers Learning Barriers: Participates in education - Family Support Do you have family support?: Yes - Tobacco Use Tobacco Use: Non-smoker Do you use smokeless tobacco?: No - Intervention Smoking Cessation Referral:: No Individual Education/Counseling:: No Education Schedule Given:: Yes - Education Attended class for:: Tobacco triggers, Coronary artery disease, Risk factors, Sexuality, Medical compliance, Cardiac A&P, Angina signs & symptoms Psychosocial - Initial Assess - Target Goals Target Goals: Assess presence or absence of depression. Using a valid screening tool, maximizes coping skills. Positive support system - Psychosocial Test Tool Used:: HANDS Depression Questionnaire - Assistive Devices Fall Risk Assessed:: Yes Psychosocial - 30-Day Assess - Target Goals Target Goals: Assess presence or absence of depression. Using a valid screening tool, maximizes coping skills. Positive support system - Stages of Change Stages of Change:: Action - Psychosocial Test Tool Used:: HANDS Depression Questionnaire - Intervention PS - Interventions: Yes Attend Stress Management Classes, Yes Uses Stress Management Skills, No Referral to Mental Health, No Referral to [facility] Case Management, No Referral to Physician - Education Attended classes for:: Coping techniques, Signs & symptoms of depression, Stress management, Relaxation techniques - Assistive Devices Assistive Devices:: None Fall Risk Assessed:: Yes Patient Health Questionnaire 30-Day Re-eval Assessment 1. Little interest or pleasure in doing things: Several days 2. Feeling down, depressed, or hopeless: Several days 3. Trouble falling or staying asleep, or sleeping too much: More than half the days 4. Feeling tired or having little energy: More than half the days 5. Poor appetite or overeating: Not at all 6. Feeling bad about yourself -- or that you are a failure or have let yourself or your family down: Not at all 7. Trouble concentrating on things, such as reading the newspaper or watching television: Not at all 8. Moving or speaking so slowly that other people could have noticed. Or the opposite - being so fidgety or restless that you have been moving around a lot more than usual: Several days 9. Thoughts that you would be better off , or of hurting yourself in some way: Not at all Total Score: 7 Self-Efficacy 30-Day Re-eval Assessment We would like to know how confident you are in doing certain activities. Please select your confidence level for:: Select your confidence level for the following using the scale 1-10 where 1 is not at all confident and 10 is totally confident. Your score is the average of all 6 responses. Fatigue: How confident are you that you can keep the fatigue caused by your disease from interfering with the things you want to do? Select Number: 3 Physical Discomfort or Pain: How confident are you that you can keep the physical discomfort or pain of your disease from interfering with the things you want to do? Select Number: 3 Emotional Distress: How confident are you that you can keep the emotional distress caused by your disease from interfering with the things you want to do? Select Number: 2 Other Symptoms or Health Problems: How confident are you that you can keep other symptoms or health problems from interfering with the things you want to do? Select Number: 3 Different Tasks and Activities: How confident are you that you can do the different tasks and activities needed to manage your health condition so as to reduce your need to see a doctor? Select Number: 3 Medication: How confident are you that you can do things other than just taking medication to reduce how much your illness affects your everyday life? Select Number: 3 Total Score:: 2
[2018-01-27 09:08] VITALS: BP 158/90; BP 94/68
== END 2018-01-31 23:59 ==
LOC: CR 14:15
PROVIDERS: Family Provider Family Medicine; PCP Family Medicine; Visit Provider Internal Medicine Cardiovascular Disease
DX: I21.4 Non-ST elevation (NSTEMI) myocardial infarction (principal); I20.0 Unstable angina; I10 Essential (primary) hypertension
CPT/HCPCS: 93798

== ENCOUNTER 2018-02-01 11:52 | Outpatient (RCR) | payer BC, SELFPAY ==
[2018-02-01 01:22] VITALS: BP 158/90; BP 94/68
== END 2018-03-03 23:59 ==
LOC: CR 11:52
PROVIDERS: Family Provider Family Medicine; PCP Family Medicine; Referring Provider Internal Medicine Cardiovascular Disease; Visit Provider Internal Medicine Cardiovascular Disease
DX: I21.4 Non-ST elevation (NSTEMI) myocardial infarction (principal); I20.0 Unstable angina; I10 Essential (primary) hypertension
CPT/HCPCS: 93798

== ENCOUNTER → 2018-04-13 08:14 | Outpatient (CLI) | payer BC, SELFPAY ==
[2018-04-12 13:34] VITALS: BMI 31.9
[2018-04-13 09:49] LABS: AST(SGOT) 16 U/L (15-37); Alanine Aminotransfer ALT/SGPT 15 U/L (13-56); Albumin, Serum 2.9 g/dL (3.2-5.0); Alkaline Phosphatase 88 U/L (45-117); Bilirubin, Direct 0.12 mg/dL (0.00-0.30); Cholesterol 141 mg/dL (200); Globulin 4.5 g/dL (2.2-4.2); High Density Lipoprotein 91 mg/dL; Protein, Total 7.4 g/dL (6.4-8.2); Triglycerides 102 mg/dL; Very Low Density Lipoprotein 20 mg/dL (5-40)
--- OUTSIDE RECORDS SUMMARY | 2018-05-30 06:05 | XMS RPT_ITS ---
:1965 Author Organization [place] Support Name Relationship Address Phone JMSM Unavailable [address] + [place] [address] IZA, RAYMOND Unavailable [address] + [place] [address] JMSM Unavailable [address] + [place] [address] IZA, RAYMOND Unavailable [address] + [place] [address] JMSM Unavailable [address] + [place] [address] IZA, RAYMOND Unavailable [address] + [place] [address] JMSM Unavailable [address] + [place] [address] IZA, RAYMOND Unavailable [address] + [place] [address] JMSM Unavailable [address] + [place] [address] IZA, RAYMOND Unavailable [address] + [place] [address] JMSM Unavailable [address] + [place] [address] IZA, RAYMOND Unavailable [address] + [place] [address] JMSM Unavailable [address] + [place] [address] IZA, RAYMOND Unavailable [address] + [place] [address] JMSM Unavailable [address] + [place] [address] IZA, RAYMOND Unavailable [address] + [place] [address] JMSM Unavailable [address] + [place] [address] IZA, RAYMOND Unavailable [address] + [place] [address] JMSM Unavailable [address] + [place] [address] IZA, RAYMOND Unavailable [address] + [place] [address] JMSM Unavailable [address] + [place] [address] IZA, RAYMOND Unavailable [address] + [place] [address] JMSM Unavailable [address] + [place] [address] IZA, RAYMOND Unavailable [address] + [place] [address] JMSM Unavailable [address] + [place] [address] IZA, RAYMOND Unavailable [address] + [place] [address] JMSM Unavailable [address] + [place] [address] IZA, RAYMOND Unavailable [address] + [place] [address] JMSM Unavailable [address] + [place] [address] IZA, RAYMOND Unavailable [address] + [place] [address] JMSM Unavailable [address] + [place] [address] IZA, RAYMOND Unavailable [address] + [place] [address] JMSM Unavailable [address] + [place] [address] IZA, RAYMOND Unavailable [address] + [place] [address] JMSM Unavailable [address] + [place] [address] IZA, RAYMOND Unavailable [address] + [place] [address] JMSM Unavailable [address] + [place] [address] IZA, RAYMOND Unavailable [address] + [place] [address] JMSM Un[address] + [place] [address] GIRISH OLIVERA/ROBBIE Unavailable [address] + [place] [address] Care Team Providers Name Role Phone Arianna López Attending Unavailable Jos, Palmer Referring Unavailable Moodispaw, Chaz Attending Unavailable Moodispaw, Chaz Referring Unavailable Jos, Palmer Primary Care Unavailable Moodispaw, Chaz Attending Unavailable [place], Chaz Referring Unavailable [place], Palmer Primary Care Unavailable Moodispaw, Chaz Attending Unavailable Mood[place], Chaz Referring Unavailable Moodisp[place], Chaz Attending Unavailable Mood[place], Chaz Referring Unavailable [place], Palmer Primary Care Unavailable Moodispaw, Chaz Attending Unavailable [place], Chaz Referring Unavailable [place], Palmer Primary Care Unavailable Moodisp[place], Chaz Attending Unavailable [place], Palmer Referring Unavailable Mood[place], Chaz Attending Unavailable [place], Chaz Referring Unavailable Palmer Arguello Primary Care Unavailable Moodisp[place], Chaz Attending Unavailable Jos, Palmer Primary Care Unavailable No, Denita Attending Unavailable Olman Barba Attending Unavailable Palmer Arguello Referring Unavailable [place], Palmer Primary Care Unavailable Nurse, Marii Attending Unavailable [place], Palmer Referring Unavailable Arianna López Attending Unavailable Palmer Arguello Referring Unavailable Jos, Palmer Primary Care Unavailable [place], [place] Admitting Unavailable Moodispaw, Chaz Attending Unavailable Jos, Palmer Primary Care Unavailable Moodisp[place], Chaz Consulting Unavailable Paint[place], [place] Consulting Unavailable [place], [place] Admitting Unavailable [place], [place] Attending Unavailable Palmer Arguello Primary Care Unavailable Yvette, Chaz Consulting Unavailable [place], [place] Consulting Unavailable [place], [place] Admitting Unavailable Moodispaw, Chaz Attending Unavailable JosPalmer Primary Care Unavailable Moodispaw, Chaz Consulting Unavailable [place], [place] Consulting Unavailable [place], [place] Admitting Unavailable [place], [place] Attending Unavailable Palmer Arguello Primary Care Unavailable Moodispaw, Chaz Consulting Unavailable [place], [place] Consulting Unavailable Jos, Palmer Primary Care Unavailable [place], [place] Admitting Unavailable [place], [place] Attending Unavailable Moodisp[place], Chaz Consulting Unavailable JosPalmer Primary Care Unavailable Moe, Louis Attending Unavailable Moodisp[place], Chaz Attending Unavailable Mood[place], Chaz Referring Unavailable Medical LakePalmer Primary Care Unavailable PROBLEMS PROBLEMS DATE TYPE CONDITION / CODE ATTENDING STATUS SOURCE 04/13/2018 Unknown I21.4 - Non-ST Moodisshrutiradha Chaz Active [place] elevation (NSTEMI) [facility] myocardial Hospital infarction / Repository I21.4(ICD-10) 03/04/2018 Unknown I20.0 - Unstable Moodisparadha, Chaz Active [place] angina / Community I20.0(ICD-10) Hospital Repository 03/04/2018 Unknown I10 - Essential Moodispaw, Chaz Active [place] (primary) Community hypertension / Hospital I10(ICD-10) Repository 12/24/2017 Unknown I51.81 - Takotsubo Moodispaw, Chaz Active [place] syndrome / Community I51.81(ICD-10) Hospital Repository 07/15/2017 Unknown M25.569 - Pain in MoeLouis Active [place] unspecified knee / Community M25.569(ICD-10) Hospital Repository PROCEDURES PROCEDURES No Procedure Records FoundRESULTS RESULTS CARDIOLOGY VISIT Observed: 04/19/2018 Status: F Source: [place] RE[facility] 12:32 PM [facility] H[facility] REPOSITORY [facility] [address] [place] [address] OFFICE VISIT Date of Service: 04/12/18 MR#: [id number] Acct: [id number] Name: TENA CABRALES Rep #: [id number] : 1965 Provider: Arianna López Age/Sex: 52/F Location: [facility] [place] Status: Signed HPI HPI Details: TENA CABRALES, is a 52 F who presents to the office today for a cardiovascular follow-up. She recently established with us following a non- acute ST myocardial infarction. It was felt that she had a stress-induced cardiomyopathy or takotsubo cardiomyopathy. She was discharged home on maximum medical therapy. She has returned to work. She is concerned that her heart is skipping She wonders if this is normal. She sts that this occurs a few times a week. It last for a few seconds then it stops. This is concerning for her with her recent hospitalization. She feels that she has no energy. She wonders if this is related to her medications. She does not have any chest pain/heaviness. She does not have any worsening SOB. She does occasionally have positional dizziness. She does not have any edema. Intake Vital Signs04/12/18 Height 5 ft 7 in 04/12/18 Weight: 204 lb 04/12/18 Body Mass Index (BMI) 31.9 04/12/18 Blood Pressure 118/68 Intake Visit Reasons: Myocardial infarction Acquisition Specialist Required: No Accompanied by: None Is patient in pain?: No Allergies No Known Allergies Allergy (Verified 04/12/18 13:37) Medications losartan 100 mg-hydrochlorothiazide 12.5 mg tablet 1 tab PO QDAY #30 tab 12/08/17 [Rx Confirmed 04/12/18] aspirin 81 mg tablet,delayed release 81 mg PO DAILY@0800 #90 tab 12/24/17 [Rx Confirmed 04/12/18] atorvastatin 20 mg tablet 20 mg PO DAILY #90 tab 12/24/17 [Rx Confirmed 04/12/18] metoprolol succinate ER 50 mg tablet,extended release 24 hr 50 mg PO DAILY #90 tab 04/12/18 [Rx Confirmed 04/12/18] Ejection fraction %: 45 to 49 PFSH Medical History History of left heart catheterization (Chronic) Takotsubo cardiomyopathy (Chronic) Unstable angina (Acute) NSTEMI (non-ST elevated myocardial infarction) (Acute) Hypertension (Chronic) Family History Father Hypertension Mother Hypertension Sister Hypertension Social History Smoking Status: Former smoker how long ago did patient quit smokin years ago alcohol intake: current alcohol intake frequency: holidays/special occasions only caffeine: No ROS Const Const: Positive for fatigue; negative for weakness, fever(s) or headache(s) Eyes Eyes: Negative for blind spots, loss of peripheral vision or transient loss of vision ENT ENT: Negative for headache(s), dizziness, tinnitus or Nosebleed/epistaxis Cardio Chest Pain: Yes Palpitations: No Edema: None Muscle aches with walking: None Resp Respiratory: Positive for SOB with activity; negative for SOB at rest, SOB orthopnea\SOB lying down or Cough GI GI: Negative nausea, vomiting, heartburn or vomiting blood/hematemesis : Negative for hematuria Musc Musc: Negative for muscle aches/ myalgia Neuro Neuro: Negative for weakness, headache(s), dizziness, near syncope, syncope, lightheadedness or orthostatic symptoms Stu Hematologic/Lymphatic: Negative for easy bleeding Endo Endo: Positive for fatigue Cardiology Exam Const Appearance: cooperative, no acute distress, well developed, healthy appearing, comfortable and well groomed Orientation: alert, awake and oriented x3 Head Head: normocephalic, atraumatic and normal to inspection Ears: hearing grossly normal bilaterally Nose: external nose normal Face and Sinus: face symmetric Mouth: oral mucosae normal Eyes General: appearance normal, both eyes and all related structures Conjunctivae: conjunctivae normal Pupils: PERRL EOM: EOM intact bilaterally Neck Neck: normal visual inspection, no JVD and full ROM Carotids: normal carotid upstroke; negative bruit Neck Mass: Negative Neck mass Chest Chest inspection: normal inspection of the chest and symmetric chest movement Auscultation: Bilateral: Clear to Auscultation Cardio Palpation: normal PMI Rate: regular rate Rhythm: regular rhythm Heart sounds: S1 normal, S2 normal and positive S4; negative rub, gallop or murmur GI GI: normal to inspection, soft, no hepatosplenomegaly and bowel sounds present; negative tender Neuro General: alert, awake, oriented x3 and moves all extremities Skin Skin: no rashes or lesions noted Extremities Pulses: Normal: Right Posterior Tibial Pulse, Left Posterior Tibial Pulse, Right Radial Pulse, Left Radial Pulse Lower Extremity Edema: None: Bilateral Psych Psychological: anxious (tearful) Assessment AND Plan 1. Takotsubo cardiomyopathy I51.81 Plan Patient does not have any symptoms of congestive heart failure. Echocardiogram has been reviewed. We will continue to monitor by history, exam and echocardiograms as deemed appropriate. Patient will continue with aggressive medical management. With her symptoms of fatigue will switch patient to metoprolol extended release and have her take her pill in the evening. She will let us know if this helps with her symptoms 2. Essential hypertension I10 Plan Blood pressure is well controlled on current medications, we do not recommend any changes at this time. We will try to adjust timing of medications to help alleviate symptoms of fatigue. Plan Detail Other Medications New: Discontinued: Additional Comments Thank you for allowing us to participate in patient's plan of care, if you have any questions please do not hesitate to call. This note was generated using a voice recognition system and there may be incorrect words, spelling or punctuation errors that were not noted when reviewing the office note prior to saving. Follow Up 6 Weeks (MMM) 1 Year (PFM) Coding Level of Care Code Off vis,est,level 4 Diagnoses Takotsubo cardiomyopathy I51.81 Essential hypertension I10 Hypertension type: essential hypertension Coding Level of Care Code Off vis,est,level 4 Diagnoses Takotsubo cardiomyopathy I51.81 Essential hypertension I10 Hypertension type: essential hypertension 04/19/18 1232 <Electronically signed by Arianna PLAZA> Date Arianna PLAZA Cosign Signature: Date (if applicable) CC: Palmer Arguello DO LIVER PROFILE Collected: 04/13/2018 Status: F Source: [place] 8:18 AM [facility] REPOSITORY TYPE CODE TESTS RESULT OUT OF RANGE REFERENCE UNITS LAB L501.1500 6.4-8.2 g/dL Normal T PROT 7.4 LAB L501.1800 3.2-5.0 g/dL Low ALB 2.9 LAB L501.1950 2.2-4.2 g/dL High GLOB 4.5 LAB L501.4100 15-37 U/L Normal AST 16 LAB L501.4305 45-117 U/L Normal ALK P 88 LAB L501.4405 13-56 U/L Normal ALT 15 LAB L501.4600 0.20-1.00 mg/dL Normal T BILI 0.30 LAB L501.4700 0.00-0.30 mg/dL Normal D BILI 0.12 Performed By: #### L500.3400, L500.4100 #### [facility] [address] [place], [address] LIPID PROFILE Collected: 04/13/2018 Status: F Source: [place] 8:18 AM [facility] REPOSITORY TYPE CODE TESTS RESULT OUT OF RANGE REFERENCE UNITS LAB L501.4900 200 mg/dL Normal CHOL 141 Result Comment: <200 mg/dL Desirable 200-240 mg/dL Borderline >240 mg/dL High Risk LAB L501.5000 mg/dL Normal TRIG 102 Result Comment: The drugs N-Acetylcysteine and Metamizole may falsely depress this assay. Serum Triglycerides Reference Interval Normal <150 mg/dL Borderline high 150 - 199 mg/dL High 200 - 499 mg/dL Very High > or = 500 mg/dL LAB L501.6400 mg/dL Normal HDL 91 Result Comment: The drugs N-Acetylcysteine and Metamizole may falsely depress this assay. Reference Range HDL <40 mg/dL Low HDL Cholesterol HDL >or= 60 mg/dL High HDL Cholesterol LAB L501.6500 0-130 mg/dL Normal LDL 30 LAB L501.6600 5-40 mg/dL Normal VLDL 20 Performed By: #### L500.3400, L500.4100 #### [facility] [address] [place], [address] STRESS REPORT Observed: 12/30/2017 Status: F Source: [place] 6:22 PM [facility] REPOSITORY [facility] Cardiovascular Services [address] [place] [address] MR#: [id number] Acct: [id number] Name: TENA CABRALES Rep #: [id number] : 1965 52 From: Chaz Crawford MD Primary Care: Palmer Arguello DO Status: REG CLI Ordering Dr: Sex: F C Stress Test Report Date: 12/30/2017 Procedure: Exercise tolerance test Indications: Chest pain; Takotsubo Syndrome Consent: Per the patient Procedure: The patient exercised on a Lucho protocol for 6 minutes completing Stage II achieving a peak heart rate of 184 bpm (108 % predicted maximal heart rate) with a peak blood pressure 150/70 mmHg and a peak MET capacity of approximately 7 MET's. The baseline ECG demonstrated normal sinus rhythm; T-wave abnormality (anterior, lateral, inferior). The peak exercise ECG demonstrated continued T- wave abnormality. There a rare PVC during exercise. The functional capacity was considered average. The patient had no complaint of chest discomfort during exercise or recovery. The examination was discontinued secondary to dyspnea and fatigue. Impression: 1. Technically adequate (percent predicted maximal heart rate greater than 85%) exercise tolerance test 2. Peak exercise ECG with continued T-wave abnormality 3. There was a rare PVC during exercise This note was generated with [employer] software. It may contain incorrect words, spelling, and punctuation that were not noted in checking the note before signing. 12/30/17 182 <Electronically signed by Chaz Crawford MD> Date Chaz Crawford MD CC: Palmre Arguello DO; Chaz Crawford MD Date Dictated: 12/30/17 1259 Date Transcribed: 12/30/171258 Cooler Service Supervisor: PM Signed 12 LEAD ELECTROCARDIOGRAM Observed: 12/28/2017 Status: F Source: [place] 2:49 PM [facility] REPOSITORY [facility] Cardiovascular Services [address] [place] [address] 12 Lead EKG 11/23/17 1043 MR#: [id number] Acct: [id number] Name: TENA CABRALES Rep #: [id number] : 1965 52 From: Chaz Crawford MD Attending Dr: Raina Loaiza MD Status: DIS IN Ordering Dr: Heron Padilla DO Date: 11/23/17 Location: [facility] Sex: F C Admitted: 11/23/17 Test Reason : CP Blood Pressure : / mmHG Vent. Rate : 099 BPM Atrial Rate : 099 BPM P-R Int : 134 ms QRS Dur : 082 ms QT Int : 362 ms P-R-T Axes : 041 -01 186 degrees QTc Int : 464 ms Normal sinus rhythm Inferior infarct, age undetermined ST AND T wave abnormality, consider myocardial ischemia Abnormal ECG Reconfirmed by YVETTE RICHARDSON, CHAZ ([id number]), newspaper editor managing RITA CLARKE ([id number]) on 12/28/2017 2:48:38 PM Referred By: AGUSTINA Confirmed By:CHAZ CRAWFORD MD 12/28/17 1448 Date Chaz Crawford MD CC: Raina Loaiza MD; Palmer Arguello DO; Heron Padilla DO Signed CARDIOLOGY VISIT Observed: 12/24/2017 Status: F Source: [place] REPORT 4:01 PM [facility] REPOSITORY [facility] [address] [place] [address] OFFICE VISIT Date of Service: 12/24/17 MR#: [id number] Acct: [id number] Name: TENA CABRALES Rep #: [id number] : 1965 Provider: Chaz Crawford MD Age/Sex: 52/F Location: [facility] Status: Signed HPI HPI Details: TENA CABRALES, is a 52 F who presents to the office today for for outpatient cardiovascular follow-up. She was recently evaluated at [facility]. She had concerns of chest discomfort and an abnormal ECG and an abnormal troponin I look. Thus there were concerns of an acute non-ST segment elevation AL. She was evaluated with noninvasive and invasive studies. She had a transthoracic echocardiogram performed. She had left ventricular wall motion abnormalities involving the apex. Her LVEF was 45%. She subsequently underwent diagnostic cardiac catheterization. This demonstrated her LV apex to appear relatively akinetic. Her LVEF was approximately 50%. Her coronary arteries were angiographically normal. The consensus was that she had an underlying stress-induced type cardiomyopathy or Takotsubo Syndrome. She was released home. She has had a follow-up appointment because of concerns of chest discomfort, etc. She presents today for her previously scheduled follow-up appointment. She states overall she does feel better. She still has episodes, randomly, where she feels some chest discomfort. She gets anxious. She states if she calms herself down her discomfort goes away. She is unable to carry on with her activity. She has had no orthopnea or PND or peripheral pitting edema. There is been no near syncope or syncope. She states prior to this diagnosis she used to have episodes of fast heart rates. Since she has been treated for hypertension she has not noticed those episodes. She did have an ECG today. She had sinus rhythm. She had T-wave changes in the anterolateral and inferior distribution. These changes may go along with her involving stress-induced cardiomyopathy syndrome as they have waxed and waned during and since her hospitalization. Her electrocardiogram does demonstrate a hint of slurring of the upstroke of the QRS complex. This has raised concerns as to whether or not she could have an underlying preexcitation syndrome. However this may not be definitive. Thus her elective cardiographic changes in cardiac rhythms will be monitored as she proceeds with cardiac rehabilitation. Intake Vital Signs12/24/17 Height 5 ft 7 in 12/24/17 Weight: 200 lb 12/24/17 Body Mass Index (BMI) 31.3 12/24/17 Blood Pressure 116/72 Intake Visit Reasons: NSTEMI Allergies No Known Allergies Allergy (Verified 12/24/17 14:40) Medications losartan 100 mg-hydrochlorothiazide 12.5 mg tablet 1 tab PO QDAY #30 tab 12/08/17 [Rx Confirmed 12/24/17] aspirin 81 mg tablet,delayed release 81 mg PO DAILY@0800 #90 tab 12/24/17 [Rx Confirmed 12/24/17] atorvastatin 20 mg tablet 20 mg PO DAILY #90 tab 12/24/17 [Rx Confirmed 12/24/17] metoprolol tartrate 25 mg tablet 25 mg PO BID #180 tab 12/24/17 [Rx Confirmed 12/24/17] [facility] Medical History Takotsubo cardiomyopathy (Chronic) Unstable angina (Acute) NSTEMI (non-ST elevated myocardial infarction) (Acute) Hypertension (Chronic) Family History Father Hypertension Mother Hypertension Sister Hypertension Social History Smoking Status: Former smoker alcohol intake: current alcohol intake frequency: holidays/special occasions only caffeine: Yes Type: carbonated beverages ROS Const Const: Positive for fatigue (tired all of the time); negative for weakness, weight gain, weight loss, frequent falls or excessive sweating Eyes Eyes: Negative for change in vision, blurry vision or transient loss of vision ENT ENT: Negative for dizziness or balance problems Cardio Chest Pain: Yes Character: other (pressure) Onset: at rest, exercise Location: mid sternal Duration: brief Palpitations: Yes (occasional; couple episodes last week ) feels like its: skipping Edema: None Muscle aches with walking: None Additional Details: Patient reports that she has been experiencing chest heaviness couple times a day to every other day. Patient states that the heaviness is not like she felt when she was admitted to the hospital. Patient states that episodes are brief with heaviness located midsternal. Patient states that her anxiety is exacerbated since her heart attack. Family states that anything that is not in the norm can cause her to become anxious, SOB with experiencing heaviness. Resp Respiratory: Negative for SOB with activity or SOB at rest GI GI: Negative vomiting or vomiting blood/hematemesis : Negative for hematuria Musc Musc: Negative for balance problems, muscle aches/ myalgia, muscle weakness or joint pain Skin Skin: Negative non-healing lesions or rash Neuro Neuro: Negative for weakness, blurry vision, dizziness, lightheadedness, frequent falls or orthostatic symptoms Stu Hematologic/Lymphatic: Negative for easy bleeding Endo Endo: Positive for fatigue (tired all of the time); negative for excessive sweating Psych Psych: Negative for anxiety or depression Allergy Allergy/Immunology: Negative for hives, Negative for rash Cardiology Exam Const Appearance: cooperative, no acute distress, well developed, healthy appearing, comfortable and well groomed Orientation: alert, awake and oriented x3 Head Head: normocephalic, atraumatic and normal to inspection Ears: hearing grossly normal bilaterally Nose: external nose normal Face and Sinus: face symmetric Mouth: oral mucosae normal Eyes General: appearance normal, both eyes and all related structures Conjunctivae: conjunctivae normal Pupils: PERRL EOM: EOM intact bilaterally Neck Neck: normal visual inspection, no JVD and full ROM Carotids: normal carotid upstroke; negative bruit Neck Mass: Negative Neck mass Chest Chest inspection: normal inspection of the chest and symmetric chest movement Auscultation: Bilateral: Clear to Auscultation Cardio Palpation: normal PMI Rate: regular rate Rhythm: regular rhythm Heart sounds: S1 normal, S2 normal and positive S4; negative rub, gallop or murmur GI GI: normal to inspection, soft, no hepatosplenomegaly and bowel sounds present; negative tender Neuro General: alert, awake, oriented x3 and moves all extremities Skin Skin: no rashes or lesions noted Extremities Pulses: Normal: Right Posterior Tibial Pulse, Left Posterior Tibial Pulse, Right Radial Pulse, Left Radial Pulse Lower Extremity Edema: None: Bilateral Psych Psychological: anxious (tearful) Assessment AND Plan 1. Takotsubo cardiomyopathy I51.81 Plan At the present time she states overall she feels better. She still has intermittent discomforts. She is concerned as to whether it is anxiety related. She believes it may be as she can pause, take deep breaths, and then feel better. She has been up and active. She has had no consistent concerning discomforts with her activity. However she has not yet returned to full activity and not yet returned to work. She is due to start cardiac rehabilitation. At the present time she was asked to continue her medical management. She will have an exercise to this test to evaluate her symptoms and her functional status. This would also be beneficial for the cardiac rehabilitation team. She was given an excuse to remain without work until February 01-unless otherwise changed. She will be scheduled for future follow-up as well. Orders Orders: 2. Non-ST elevation AL (NSTEMI) I21.4 Plan She did have what was considered a non-ST segment elevation AL. She is undergone evaluation care as noted above. She is continuing medical management Orders Orders: 3. Essential hypertension I10 Plan Her blood pressure appears to be reasonably well-controlled. She is continuing medical therapy and follow-up peer Plan Detail Other Medications New: Refilled: Discontinued: atorvastatin Discontinued Reason: Order Cha20 mg (1/2 x 40 mg) PO QHS Arianna Mahan nged Additional Comments She will be scheduled for future fasting lipid and hepatic profile follow-up. She will be scheduled for the aforementioned evaluation. She does note that she feels somewhat tired and fatigued. It is unclear whether this is related to her beta-dona therapy versus recuperating from her recent event. She will proceed with her upcoming cardiac rehabilitation evaluation. If there is concern over time that her beta-dona may be affecting her than the dose may need to be adjusted. Also she was asked to monitor for any recurrence of her rapid heart rate sensation that she is stated she has had in the past. She will be monitored during cardiac rehabilitation as well. She will be watched for any obvious evidence of clear-cut dysrhythmias. Thank you for allowing me to participate in the care of your patient. Please don't hesitate to call if any issues arise. This note was generated using a voice recognition system and there may be incorrect words, spelling or punctuation that were not noted when reviewing the office note prior to saving. Follow Up 3 Months (PFM) 12/24/17 (Return to Employee 02/01/18) Coding Level of Care Code Off vis,est,level 4 Diagnoses Takotsubo cardiomyopathy I51.81 Non-ST elevation AL (NSTEMI) I21.4 Essential hypertension I10 Hypertension type: essential hypertension Coding Level of Care Code Off vis,est,level 4 Diagnoses Takotsubo cardiomyopathy I51.81 Non-ST elevation AL (NSTEMI) I21.4 Essential hypertension I10 Hypertension type: essential hypertension 12/24/17 1601 <Electronically signed by Chaz Crawford MD> Date Chaz Crawford MD Cosigner Signature: Date (if applicable) CC: Palmer Arguello DO 12 LEAD EKG PERFORMED Observed: 12/24/2017 Status: F Source: [place] [facility] 2:54 PM [facility] REPOSITORY [facility] [address] [place] [address] 12 Lead EKG performed by [facility] 12/24/17 1454 MR#: [id number] Acct: [id number] Name: TENA CABRALES Rep #: [id number] : 1965 52 From: Chaz Crawford MD Attending Dr: Chaz Crawford MD Status: DEP AMB Ordering Dr: Chaz Crawford MD Date: 12/24/17 Location: [facility] Sex: F C Admitted: [facility]/12 Lead EKG performed by [facility] ECG Report Interpretation Sinus Rhythm A pre excitation syndrome (WPW) cannot be excludedT wave abnormality: consider myocardial ischemiaInferior AL, age undetermined, cannot be excludedABNORMAL Electronically signed on 01/06/2018 at 17:56 by Chaz Crawford Software Version [id number] 01/06/18 1757 Date Chaz Crawford MD CC: Palmer Arguello DO Date Dictated: 12/24/171453 Date Transcribed: 12/24/171453 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 Chaz Crawford Primary Diagnosis: I21.4 - History of Present Cardiac Event Onset Date: Enter Onset Date of cardiac illnesses in Comment field below Acute Myocardial Infarction within 12 months:: Yes - Medications Home Medications: Ambulatory Orders Medication Instructions Recorded Aspirin E.C. 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 Living Will: No Advance Directives Information Provided: No Advance Directives on File: No DNR Order?:: No Past Medical History - Past Medical Illness Medical History: Past Medical History Takotsubo cardiomyopathy (Chronic) I51.81 Unstable angina (Acute) I20.0 NSTEMI (non-ST elevated myocardial infarction) (Acute) I21.4 Hypertension (Chronic) I10 - Past Surgical History Surgical History: no surgical history - Family History Summary Family History: Family History (Last Updated 11/25/17 @ 14:53 by Denita Estrada) Father Hypertension Mother Hypertension Sister Hypertension Social History - Smoking History Smoking Status: Former smoker Packs Smoked per Day: 1.5 Hx Tobacco Use: Yes Hx Smoking Exposure: Yes - Alcohol Use Alcohol Usage: Yes - socially - Substance Abuse Hx Substance Use: No - Occupation Occupation (List type of work in comments):: Employed Hours worked per day:: 12 - [employer] - Hobbies, Recreation, Social Activities Hobbies: Reading, Other - fishing Recreational Activities: I am able to engage in all my recreational activities Social Environment - Status Marital Status: Single - Current Living Arrangements Living Environment:: Alone - Children How many children do you have?: 2 Do any of your children live nearby?: Yes - Safety Do you feel safe in your surroundings?: Yes - Assistance Do you need any assistance at home?: none Review of Systems - Review of Systems Hints: Right click = Denies (Slash). Left click = Reports ([place]) Review of Present Symptoms: Reports: Shortness of Breath at Rest, Shortness of Breath with Exertion, Angina - heaviness, Fatigue, Appetite - Normal, Sleep - Normal. Denies: PVD, Operative Discomfort, Wound Healing, Dizziness/Lightheadedness, Heart Arrhythmia/Irregularities, Appetite - Special Diet, Sexual Changes - Pain Is Patient Pain Free?: Yes Pain Location: none Risk Factor Assessment - Chief Complaint Chief Complaint: NSTEMI - Vital Signs Pulse Ox: 97 - Pulse Pulse Rate: 85 Pulse Rhythm: Regular - Hypertension Blood Pressure Sitting - Left Arm: 120/80 - Stress Stress: Long-standing, Work-related, Home/Family - Diabetes Nutrition Referral for Diabetes: No - Obesity Height: 1.7 m Weight:: 92.986 kg Weight in Pounds: 205.0 lbs Weight Source: Standing Scale Body Mass Index (BMI): 32.1 Nutritional Referral for Obesity: No - Risk Stratification Risk Guidelines: Moderate Risk: Risk Factor for Smoking, Risk Factor for Dyslipidemia, Risk Factor for Diabetes, Risk Factor for Obesity, Risk Factor for Hypertension, Risk Factor for Sedentary Lifestyle, Risk Factor for Depression - For Smoking Smoking Risk Guidelines: Smoking Low Risk: None or quit greater than 6 months ago. Smoking Moderate Risk: Smoker or quit 6 months or less ago. Smoking High Risk: Smoker - For Dyslipidemia Dyslipidemia Risk Guidelines: Low Risk: Moderate Risk: High Risk: 15-25% fat 25.1-29% fat >/= 30% fat. <7% sat fat 7-9% sat fat >9% sat fat. <150 mg chol 150-299 mg chol >/= 300 mg chol. LDL <100 LDL 100-129 LDL >/= 130. Chol/HDL ratio <5.0 Chol/HDL ratio 5.0-6.0 Chol/HDL ratio >6.0. Triglycerides <100 Triglycerides 100-149 Triglycerides >/= 150 - For Diabetes Mellitus Diabetes Risk Guidelines: Diabetes Low Risk: HgA1c <6.5% and/or FBG <120. Diabetes Moderate Risk: HgA1c 6.6-7.9% and/or FBG 120- 180. Diabetes High Risk: HgA1c >/= 8% and/or FBG >180 - For Obesity/Overweight Obesity/Overweight Risk Guidelines: Obesity Low Risk: BMI <25.0. Obesity Moderate Risk: BMI 25-29.9. Obesity High Risk: BMI >/= 30.0 - For Hypertension Hypertension Risk Guidelines: Hypertension Low Risk: Systolic <120 and Diastolic <80. Hypertension Moderate Risk: Systolic 120-139 and Diastolic 80-89. Hypertension High Risk: Systolic >/= 140 and Diastolic >/= 90 - For Sedentary Lifestyle Sedentary Lifestyle Risk Guidelines: Sedentary Lifestyle Low Risk: >/= 1,500 kcal/week. Sedentary Lifestyle Moderate Risk: 700-1,499 kcal/week. Sedentary Lifestyle High Risk: < 700 kcal/week - For Depression Depression Risk Guidelines: Depression Low Risk: Not clinically depressed. Depression Moderate Risk: Mildly depressed. Depression High Risk: Clinically depressed - Family History Family History: Family History (Last Updated 11/25/17 @ 14:53 by Denita Estrada) Father Hypertension Mother Hypertension Sister Hypertension Motivation - Motivation to Participate On a scale of 1 to 10, how prepared are you to commit to attending program?: 8 What do you see as barriers to successfully being able to complete the program?: none What do you see as the benefits of succesfully completing the program? In other words, what do you hope to get out of participating in the program?: confidence Are there issues you are dealing with that will interfere with completing the program?: none Do you have a spouse or signficant other, family or friends who will help support you to complete the program?: yes 12/21/17 1337 <Electronically signed by Andrew HOLLAND, RVT> Date Andrew HOLLAND RVT Outcome assessment reviewed. Exercise plan approved as documented. Treatment plan and goals support patient needs/abilities. Continue with current plan. I certify the patient demonstrates improvement and remains willing and capable of participation. the patient continues to benefit from cardiac rehab services/training. The patient may continue at current intensity, endurance and modality and progress per protocol. 12/21/17 7780 <Electronically signed by Chaz Crawford MD> Cosigner Signature: Date Chaz Crawford MD CC: Signed OFFICE VISIT REPORT Observed: 12/08/2017 Status: F Source: [place] 3:12 PM [place] [id number] [place] [facility] [place] [address] OFFICE VISIT Date of Service: MR#: [id number] Acct: [id number] Patient: TENA CABRALES Rep #: [id number] : 1965 Provider: Denita Estrada Age/Sex: 52/F Location: [facility] Status: Signed Intake Vital Signs12/08/17 Height 5 ft 7 in 12/08/17 Weight: 213 lb 12/08/17 Body Mass Index (BMI) 33.3 12/08/17 Blood Pressure 174/101 Intake Visit Reasons: Amb Documentation Chief Complaint: elevated BP, leg swelling, shortness of breath. Acquisition Specialist Required: No Accompanied by: Is patient in pain?: No Allergies No Known Allergies Allergy (Verified 12/08/17 09:23) Medications Aspirin E.C. [Ecotrin] 81 mg PO DAILY@0800 #30 tab 11/24/17 [Rx Confirmed 12/08/17] Atorvastatin Calcium [Lipitor] 20 mg PO QHS #30 tab 11/24/17 [Rx Confirmed 12/08/17] Metoprolol Tartrate [Lopressor (beta dona)] 25 mg PO BID #60 tab 11/24/17 [Rx Confirmed 12/08/17] losartan 100 mg-hydrochlorothiazide 12.5 mg tablet 1 tab PO QDAY #30 tab 12/08/17 [Rx Confirmed 12/08/17] Nurse's Note: Patient arrived with c/o increased swelling, elevated BP and SOB. See vitals above. Weight gain of 8 lbs since 11/23. Discussed with Dr. Crawford. Lisinopril discontinued and Losartan 100mg/hydrochlorothiazide 12.5mg started. Patient had previously been on Valsartan 320mg/hydrochlorothiazide 12.5mg and tolerated well X 1 year. Advised to monitor BP, swelling and weight at home and call with any issues. Has a follow up with PFM on 12/24/17. Assessment AND Plan Medications New: losartan-hydrochlorothiazide 100-12.5 1 tab PO QDAY hypertension I51.81 Chaz Crawford MD mg Discontinued: 12/08/17 3972 <Electronically signed by Chaz Crawford MD> Date Chaz Crawford MD Cosigner Signature: Date (if applicable) CC: Denita Estrada OFFICE VISIT REPORT Observed: 11/30/2017 Status: F Source: [place] 1:40 PM [facility] [place] [place] [address] OFFICE VISIT Date of Service: 11/30/17 MR#: [id number] Acct: [id number] Patient: TENA CABRALES Rep #: [id number] : 1965 Provider: Marii Olson RN Age/Sex: 52/F Location: [facility] Status: Signed Intake Intake Visit Reasons: BP check/ NSTEMI Chief Complaint: Chest Pain Allergies No Known Allergies Allergy (Verified 11/25/17 14:51) Medications Aspirin E.C. [Ecotrin] 81 mg PO DAILY@0800 #30 tab 11/24/17 [Rx Confirmed 11/25/17] Atorvastatin Calcium [Lipitor] 20 mg PO QHS #30 tab 11/24/17 [Rx Confirmed 11/25/17] Metoprolol Tartrate [Lopressor (beta dona)] 25 mg PO BID #60 tab 11/24/17 [Rx Confirmed 11/25/17] lisinopril 2.5 mg tablet 2.5 mg PO QDAY #30 tab 11/30/17 [Rx Confirmed 11/30/17] Assessment AND Plan Medications New: Nursing Note Patient here today for a blood pressure check. She states she has no energy. She had a heart cath last Thursday, she stated her groin is bruised. I did let her know that bruising is normal. Her blood pressure today is 118/74, pulse 72, pulse ox 98, resp 20. Per Arianna López, She is to begin Lisinopril 2.5 mg daily, keep appt with Dr. Crawford for 12/24/2017. Patient notified of above and verbalized understanding. She was also notified to let us know if any changes in how she feels prior to next appt. Patient would like med phoned into [facility] in [place]. 11/30/17 1340 <Electronically signed by Arianna López PA> Date Arianna Hampton Signature: Date (if applicable) CC: EMERGENCY DEPARTMENT Observed: 11/30/2017 Status: F Source: [place] SUMMARY 12:25 AM [facility] REPOSITORY [facility] Medical Records Department [address] [place] [address] Emergency Department Summary 11/23/17 1143 MR#: [id number] Acct: [id number] Name: TENA CABRALES Rep #: [id number] : 1965 52 From: Heron Padilla DO PCP: Palmer Arguello DO Status: DIS IN - ER Visit Summary Date of Service: 11/23/17 Chief Complaint: Chest pain History of Present Illness: The patient is a 52 F who states that last week she was on vacation in [place] she states that on Thursday she began to have a pressure in her chest with exertion that would always resolve when she rested. She states now with even the minimalist amount of exertion she feels the pressure. At rest she feels better. She states that she returned home from her vacation on Thursday and felt dehydrated and was shaky and jerky at times. She states that part is resolved but she continues to have the chest pressure with exertion. 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 She went to her primary care physician's office and was referred to the emergency department based on an abnormal EKG. This showed ST T-wave changes anterior laterally. Patient has no old EKGs to compare to. She has a history of hypertension. She does not take daily aspirin. The patient states that she will require some type of sedative even to have simple blood work drawn. Physical Examination: Afebrile vital signs are stable Gen: Well-nourished well-developed Head: Normocephalic atraumatic Eyes: Perrl EOMI ENT: TMs clear no rhinorrhea moist mucous membranes Neck: Supple no lymphadenopathy no JVD nontender CVS: Regular rate rhythm no murmurs normal S1-S2 Respiratory: No distress clear to auscultation bilaterally chest nontender Abdomen: Soft nontender nondistended normal bowel sounds no masses Back: Nontender Extremity: Nontender no edema Skin: Normal color no rash Neuro: alert orientated 3 CN II-XII intact normal strength sensation reflexes gait cerebellar Psych: Very anxious Test Results: EKG here in the department shows ST and T-wave changes anterior lateral leads. Upon an elevated at 0.179. Creatinine 0.92. Chest x-ray negative. Repeat EKG shows resolved changes at rest. Emergency Department Course and Treatment: Received Ativan and aspirin. She also received metoprolol because her heart rate was at 100. We also gave her 180 mg of Brilinta and a heparin bolus and drip addition to nitro paste. Case was discussed with Dr. Crawford and Dr. Loaiza Impression: 1. Acute coronary syndrome This note was generated with [employer] software. It may contain incorrect words, spelling, and punctuation that were not noted in review of the chart prior to signing ED Disposition - Plan for ED Patient: Chief Complaint: Chest Pain What to do if you have Problems For any increased pain, shortness of breath, bleeding, nausea or vomiting, chest pain, or any unexpected problems, contact your Primary Care Provider. Call [facility] ([phone]) or report to the closest Emergency Room. Call 911 if necessary. 11/30/17 0025 <Electronically signed by Heron Padilla DO> Date Heron Padilla DO Cosigner Signature (If Indicated): Date CC: Palmer Arguello DO CARDIOLOGY VISIT Observed: 11/28/2017 Status: F Source: [facility] REPORT 10:22 AM [facility] REPOSITORY [facility] [address] [place], [place] [address]. [address] [place] [address] OFFICE VISIT Date of Service: 11/25/17 MR#: [id number] Acct: [id number] Name: TENA CABRALES Rep #: [id number] : 1965 Provider: Arianna López Age/Sex: 52/F Location: [facility] Status: Signed HPI HPI Details: TENA CABRALES, is a 52 F who presents to the office today for an urgent appointment. She was admitted to the hospital on November 23 with chest discomfort. She was noted to have an elevated troponin of 0.174. She underwent a diagnostic heart catheterization which demonstrated ejection fraction of 50%. Normal coronary arteries. 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 She was discharged home on low-dose metoprolol. She previously was on an arm however this was discontinued due to low blood pressure readings in the hospital. She was also started on an aspirin and low-dose statin. Patient presents here today with concerns over still awakening with chest heaviness however she states that when she starts moving in the morning it has improved. She is concerned because she is to return to work next week and does not feel that she is capable of this. She is very anxious over this event that she had and is tearful today. She states that the chest discomfort this morning has since resolved. She does not have shortness of breath. She does not have any palpitations that she is aware of. She does not have any lightheadedness or dizziness. She does not have any lower extremity edema. Intake Vital Signs11/25/17 Height 5 ft 7 in 11/25/17 Weight: 205 lb 11/25/17 Body Mass Index (BMI) 32.1 11/25/17 Blood Pressure 110/70 11/25/17 Blood Pressure Location Lt brachial Intake Visit Reasons: per MMM Acquisition Specialist Required: No Accompanied by: Boyfriend Is patient in pain?: No Allergies No Known Allergies Allergy (Verified 11/25/17 14:51) Medications Aspirin E.C. [Ecotrin] 81 mg PO DAILY@0800 #30 tab 11/24/17 [Rx Confirmed 11/25/17] Atorvastatin Calcium [Lipitor] 20 mg PO QHS #30 tab 11/24/17 [Rx Confirmed 11/25/17] Metoprolol Tartrate [Lopressor (beta dona)] 25 mg PO BID #60 tab 11/24/17 [Rx Confirmed 11/25/17] Ejection fraction %: 50 to 54 PFSH Medical History Takotsubo cardiomyopathy (Chronic) Unstable angina (Acute) NSTEMI (non-ST elevated myocardial infarction) (Acute) Hypertension (Chronic) Family History Father Hypertension Mother Hypertension Sister Hypertension Social History Smoking Status: Former smoker alcohol intake: current alcohol intake frequency: holidays/special occasions only caffeine: Yes Type: carbonated beverages ROS Const Const: Negative for weakness, fatigue, fever(s) or headache(s) Eyes Eyes: Negative for blind spots, loss of peripheral vision or transient loss of vision ENT ENT: Negative for headache(s), dizziness, tinnitus or Nosebleed/epistaxis Cardio Chest Pain: Yes Palpitations: No Edema: None Muscle aches with walking: None Resp Respiratory: Negative for SOB with activity, SOB at rest, SOB orthopnea\SOB lying down or Cough GI GI: Negative nausea, vomiting, heartburn or vomiting blood/hematemesis : Negative for hematuria Musc Musc: Negative for muscle aches/ myalgia Neuro Neuro: Negative for weakness, headache(s), dizziness, near syncope, syncope, lightheadedness or orthostatic symptoms Stu Hematologic/Lymphatic: Negative for easy bleeding Endo Endo: Negative for fatigue Psych Psych: Positive for anxiety Cardiology Exam Const Appearance: cooperative, no acute distress and well developed Orientation: alert, awake and oriented x3 Head Head: normocephalic and atraumatic Mouth: moist mucous membranes Eyes General: appearance normal, both eyes and all related structures Conjunctivae: conjunctivae normal Pupils: PERRL EOM: EOM intact bilaterally Neck Neck: normal visual inspection, no lymphadenopathy and no JVD Carotids: Negative bruit Neck Mass: Negative Neck mass Chest Chest inspection: normal inspection of the chest and symmetric chest movement Auscultation: Bilateral: Clear to Auscultation Cardio Palpation: normal PMI Rate: regular rate Rhythm: regular rhythm Heart sounds: S1 normal and S2 normal; negative rub, gallop or murmur GI GI: normal to inspection, soft, no hepatosplenomegaly and bowel sounds present; negative tender Neuro General: alert, awake, oriented x3, CN's II-XI intact bilaterally and moves all extremities Extremities Pulses: Normal: Right Posterior Tibial Pulse, Left Posterior Tibial Pulse, Right Radial Pulse, Left Radial Pulse Lower Extremity Edema: None: Bilateral Psych Psychological: anxious (tearful) Assessment AND Plan 1. Takotsubo cardiomyopathy I51.81 Plan - SHRUTI Monzon Did have a long discussion with patient regarding her diagnosis and events that may have led up to her hospital stay. For now we will continue her with her current dose of metoprolol. If she continues to have chest discomfort throughout the week she was advised to give us a call we will continue to adjust medications. To consider adding isosorbide however patient's blood pressure is on the low side today and am hesitant to do so. She will return on Thursday for blood pressure check. If blood pressure tolerates would like to start her on an ALYCE inhibitor. Will also refer patient to cardiac rehab as feel that she would benefit from this with her non-ST myocardial infarction, cardiomyopathy. She will be given a work excuse to return to work at her next scheduled office visit which is in 1 month. Plan Detail Other Orders Referrals: Additional Comments - SHRUTI Monzon The above patient was discussed with Dr. Crwaford, he agrees with plan of care. Thank you for allowing us to participate in patient's plan of care, if you have any questions please do not hesitate to call. This note was generated using a voice recognition system and there may be incorrect words, spelling or punctuation errors that were not noted when reviewing the office note prior to saving. Follow Up 11/25/17 (keep as is with PFM) 11/25/17 (Please give work excuse until next OV) Coding Level of Care Code Off vis,est,level 4 Diagnoses Takotsubo cardiomyopathy I51.81 Coding Level of Care Code Off vis,est,level 4 Diagnoses Takotsubo cardiomyopathy I51.81 11/27/17 0934 <Electronically signed by Arianna PLAZA> Date Arianna PLAZA 11/28/17 1022<Electronically signed by Chaz Crawford MD> Cosigner Signature: Date (if applicable) Chaz Crawford MD CC: Palmer Arguello DO 12 LEAD ELECTROCARDIOGRAM Observed: 11/27/2017 Status: F Source: [place] 1:08 PM [facility] REPOSITORY [facility] Cardiovascular Services [address] [place] [address] 12 Lead EKG 11/23/17 1212 MR#: [id number] Acct: [id number] Name: TENA CABRALES Rep #: [id number] : 1965 52 From: Chaz Crawford MD Attending Dr: Raina Loaiza MD Status: DIS IN Ordering Dr: Heron Padilla DO Date: 11/23/17 Location: [facility] [facility] Sex: F C Admitted: 11/23/17 Test Reason : REPEAT EKG Blood Pressure : / mmHG Vent. Rate : 096 BPM Atrial Rate : 096 BPM P-R Int : 162 ms QRS Dur : 082 ms QT Int : 336 ms P-R-T Axes : 032 -15 023 degrees QTc Int : 424 ms Normal sinus rhythm Leftward axis Inferior AL, age undetermined, cannot be excluded Confirmed by YVETTE RICHARDSON, CHAZ ([id number]), newspaper editor managing RITA CLARKE ([id number]) on 11/27/2017 1:08:17 PM Referred By: KAJLA Confirmed By:CHAZ CRAWFORD MD 11/27/17 1308 Date Chaz Crawford MD CC: Raina Loaiza MD; Palmer Arguello DO; Heron Padilla DO Signed 12 LEAD ELECTROCARDIOGRAM Observed: 11/26/2017 Status: F Source: [place] 12:38 PM [facility] REPOSITORY [facility] Cardiovascular Services [address] [place] [address] 12 Lead EKG 11/24/17 0521 MR#: [id number] Acct: [id number] Name: TENA CABRALES Rep #: [id number] : 1965 52 From: Heron Sauceda MD Attending Dr: Raina Loaiza MD Status: DIS IN Ordering Dr: Chaz Crawford MD Date: 11/24/17 Location: [facility] Sex: F C Admitted: 11/23/17 Test Reason : AM EKG Blood Pressure : / mmHG Vent. Rate : 085 BPM Atrial Rate : 085 BPM P-R Int : 146 ms QRS Dur : 088 ms QT Int : 378 ms P-R-T Axes : 040 -26 027 degrees QTc Int : 449 ms Normal sinus rhythm T wave abnormality, consider anterior ischemia Abnormal ECG When compared with ECG of 23-NOV-2017 12:12, MANUAL COMPARISON REQUIRED, DATA IS UNCONFIRMED Confirmed by HERON SAUCEDA ([id number]), newspaper editor managing RITA CLARKE ([id number]) on 11/26/2017 12:37:54 PM Referred By: EVELYN Confirmed By:HERON SAUCEDA 11/26/17 1237 Date Heron Sauceda MD CC: Raina Loaiza MD; Palmer Arguello DO; Chaz Crawford MD Signed DISCHARGE SUMMARY Observed: 11/24/2017 Status: F Source: [place] 4:01 PM [facility] REPOSITORY [facility] Medical Records Department [address] [place] [address] Discharge Summary 11/24/17 1230 MR#: [id number] Acct: [id number] Name: TENA CABRALES Rep #: [id number] : 1965 52 From: Raina Loaiza MD PCP: Pamler Arguello DO Status: ADM IN Location: [place] [id number] Discharge Date and Diagnosis - Problem List Patient Problems: Active and Suspected Problems Unstable angina (Acute) NSTEMI (non-ST elevated myocardial infarction) (Acute) Date of Admission: 11/23/17 Date of Discharge: 11/24/17 - Primary Discharge Diagnosis Active and Suspected Problems Unstable angina (Acute) NSTEMI (non-ST elevated myocardial infarction) (Acute) Relative hypotension - Secondary Discharge Diagnosis Chronic Problems Hypertension (Chronic) Hospital Course and Treatment Imaging Results: Clinical Impression(s) from Imaging Studies Chest X-Ray 11/23/17 11:24 IMPRESSION: Normal x-ray examination of the chest. Electronically Signed: Michael Hoffmann MD at 11:45 EDT Tel , Service support , Cardiology - Yvette Parnell Operations: None Procedures: Cardiac catheterization Summary of Care Provided: 52 year old F with PMHx of hypertension, who comes with chest pain ongoing for 6 days. Chest pain described as substernal, pressure-like, nonradiating worse with exertion for the first 2 days. Subsequently chest pain occured at rest and with minimal exertion. Patient was admitted to the telemetry floor for management as NSTEMI/UA, TANMAY score of 2. She was started on heparin drip, loaded on Brilinta. Cardiology was consulted. She had a cardiac cath done on 06/07/2017 that showed clean coronaries, EF of 50%, Takasubo cardiomyopathy was seen. At discharge, her physical exam was unremarkable. Blood pressure was slightly low. Patient was discharged on metoprolol 25 mg p.o. twice daily. Her home losartan hydrochlorothiazide was stopped, discharged on atorvastatin 20mg daily and would have to follow up with Dr. Crawford in the office in 1 week for blood pressure check. Discharge Diet: Low fat/ Low Cholesterol, 2000 mg Sodium Diet Discharge Activity: Return to Normal Activity Home Medications: Medications to take at Discharge Pnv No.122/Iron/Folic Acid [ Multi Tablet] 1 each PO DAILY 11/23/17 Aspirin E.C. [Ecotrin] 81 mg PO DAILY@0800 #30 tab 11/24/17 Atorvastatin Calcium [Lipitor] 20 mg PO QHS #30 tab 11/24/17 Metoprolol Tartrate [Lopressor (beta dona)] 25 mg PO BID #60 tab 11/24/17 Following Prescrptions Were Given to Patient: Aspirin E.C. [Ecotrin] 81 mg PO DAILY@0800 #30 tab Atorvastatin Calcium [Lipitor] 20 mg PO QHS #30 tab Metoprolol Tartrate [Lopressor (beta dona)] 25 mg PO BID #60 tab Primary Care Physician: Palmer Arguello DO [Primary Care Provider] - Please follow up with your Primary Care Physician in: within 1-2 weeks Please Follow Up With: Chaz Crawford MD When: within 2 weeks Disposition: Home Minutes spent on discharge:: 40 Patient Condition:: Stable Medical Necessity - Tobacco Use Smoking Status: Never smoker Tobacco Use: Non-smoker Meaningful Use Info Meaningful Use Diagnoses (Choose all that apply): None applicable Code Visit Inpatient E AND M: 42905 Disch Hosp 11/24/17 1601 <Electronically signed by Raina Loaiza MD> Date Raina Loaiza MD Cosigner Signature (if applicable): Date CC: Raina Loaiza MD; Palmer Arguello DO Signed DISCHARGE INSTRUCTION Observed: 11/24/2017 Status: F Source: [place] 12:30 PM [facility] REPOSITORY [facility] Medical Records Department [address] [place] [address] Instructions for Home/Discharge Instructions 11/24/17 1228 MR#: [id number] Acct: [id number] Name: TENA CABRALES Rep #: [id number] : 1965 52 From: Raina Loaiza MD PCP: Palmer Arguello DO Status: ADM IN - Discharge Diagnoses Current Active Problems: Current Active and Chronic Problems Unstable angina (Acute) NSTEMI (non-ST elevated myocardial infarction) (Acute) Hypertension (Chronic) Reason(s) for Visit for Discharge Instructions: Chest pain You will use the following diet at home:: Cardiac Your food should be the consistency of: Regular Your liquids should be the consistency of: Regular/Thin Discharge Activity: Return to Normal Activity Allergies/Adverse Reactions: Allergies No Known Allergies Allergy (Verified 11/23/17 10:40) Medications to take at Discharge Pnv No.122/Iron/Folic Acid [ Multi Tablet] 1 each PO DAILY 11/23/17 Aspirin E.C. [Ecotrin] 81 mg PO DAILY@0800 #30 tablet 11/24/17 Atorvastatin Calcium [Lipitor] 40 mg PO QHS #30 tablet 11/24/17 Valsartan/Hydrochlorothiazide [Valsartan-Hctz 320-12.5 mg Tab] 1 each PO DAILY 11/24/17 The following prescriptions were given: Aspirin E.C. [Ecotrin] 81 mg PO DAILY@0800 #30 tablet Atorvastatin Calcium [Lipitor] 40 mg PO QHS #30 tablet Primary Care Physician: Palmer Arguello DO [Primary Care Provider] - Please follow up with your Primary Care Physician in: within 1-2 weeks Test Results: Test results from this visit will be discussed in further detail at your follow-up appointment, if applicable. Please Follow Up With: Chaz Crawford MD When: within 2 weeks Proposed Discharge Date: 11/24/17 11/24/17 1230 <Electronically signed by Raina Loaiza MD> Date Rania Loaiza MD CC: Palmer Arguello DO; Chaz Crawford MD CBC W/DIFF, AUTOMATED Collected: 11/24/2017 Status: F Source: [place] 2:50 [facility] REPOSITORY TYPE CODE TESTS RESULT OUT OF RANGE REFERENCE UNITS LAB L100.1000 4.4-11.0 K/mm3 Normal WBC 5.1 LAB L100.1200 4.2-5.4 M/mm3 Low RBC 3.79 LAB L100.1300 12.0-15.0 g/dl Normal HGB 12.8 LAB L100.1400 37-47 % Normal HCT 37.8 LAB L100.1500 81-99 fL High MCV 99.7 LAB L100.1600 27.0-32.0 pg High MCH 33.8 LAB L100.1700 32-36 g/gl Normal MCHC 33.9 LAB L100.1810 11.6-14.6 % Normal RDW CV 13.2 LAB L100.1820 35.1-43.9 fl High RDW SD 47.9 LAB L100.1900 150-450 K/mm3 Low PLT 117 LAB L100.2000 6.2-12.0 fl Normal MPV 9.8 LAB L100.2100 47-70 % Normal NEUT% 69.2 LAB L100.2200 19-41 % Normal LY% 23.9 LAB L100.2300 0-10 % Normal MONO% 4.7 LAB L100.2400 0-5 % Normal EO% 1.6 LAB L100.2500 0-1 % Normal BASO% 0.4 LAB L100.2550 0.0-0.9 % Normal IM GRAN % 0.200 Result Comment: IG% - Immature Granulocytes (promyelocytes, myelocytes and metamyelocytes) > 1% indicates that a LEFT SHIFT is Present. LAB L100.2620 2.0-7.7 X10 3/uL Normal Absolute Neut 3.5 LAB L100.2720 0.83-4.51 X10 3/ul Normal Absolute Lymph 1.21 Performed By: #### L100.0100 #### [facility] [address] [place], [place], [address] BASIC METABOLIC Collected: 11/24/2017 Status: F Source: [place] PROFILE (BMP) 2:50 AM [facility] REPOSITORY TYPE CODE TESTS RESULT OUT OF RANGE REFERENCE UNITS LAB L501.0100 74-106 mg/dL Normal GLU 91 Result Comment: Please note revised GLUCOSE reference range effective 2017. LAB L501.1000 7-18 mg/dL Normal BUN 12 LAB L501.1100 0.55-1.02 mg/dL Normal CREAT,SERUM 0.93 Result Comment: The validity of the calculated GFR AND GFRAA in patients over 70 years has not been determined. Clinical correlation is essential. LAB L501.1110 >60 mL/min Normal EST GFR 68 Result Comment: Non- GFR Calc LAB L501.1115 >60 mL/min Normal EST GFR - AA 82 Result Comment: GFR Calc LAB L501.1255 ml/min Normal Estimated CRCL 70.38 LAB L501.1300 10-20 RATIO Normal BUN/CRE 12.9 LAB L501.2200 8.5-10 mg/dL Normal .1 CA 8.8 LAB L501.5300 136-14 mmol/L Normal 5 NA 136 LAB L501.5600 3.5-5. mmol/L Normal 1 K 3.6 LAB L501.5900 98-107 mmol/L Normal CL 100 LAB L501.6100 21.0-3 mmol/L Normal 2.0 CO2 28.0 LAB L501.6200 5-15 Normal GAP 8 Performed By: #### L500.2500, L500.4100 #### [facility] [address] [place], [place], [id number] LIPID PROFILE Collected: 11/24/2017 Status: F Source: [place] 2:50 AM [facility] REPOSITORY TYPE CODE TESTS RESULT OUT OF RANGE REFERENCE UNITS LAB L501.4900 200 mg/dL Normal CHOL 158 Result Comment: <200 mg/dL Desirable 200-240 mg/dL Borderline >240 mg/dL High Risk LAB L501.5000 mg/dL Normal TRIG 117 Result Comment: The drugs N-Acetylcysteine and Metamizole may falsely depress this assay. Serum Triglycerides Reference Interval Normal <150 mg/dL Borderline high 150 - 199 mg/dL High 200 - 499 mg/dL Very High > or = 500 mg/dL LAB L501.6400 mg/dL Normal HDL 96 Result Comment: The drugs N-Acetylcysteine and Metamizole may falsely depress this assay. Reference Range HDL <40 mg/dL Low HDL Cholesterol HDL >or= 60 mg/dL High HDL Cholesterol LAB L501.6500 0-130 mg/dL Normal LDL 39 LAB L501.6600 5-40 mg/dL Normal VLDL 23 Performed By: #### L500.2500, L500.4100 #### [facility] [address] [place], [place], [id number] PROTHROMBIN TIME W/INR Collected: 11/24/2017 Status: F Source: [place] 2:50 AM [facility] REPOSITORY TYPE CODE TESTS RESULT OUT OF RANGE REFERENCE UNITS LAB L300.4150 11.7-14.9 SECONDS Normal PROTIME 12.8 LAB L300.4200 Normal INR 1.0 Performed By: #### L300.3900 #### [facility] [address] [place], [place], [id number] PARTIAL THROMBOPLAST Collected: 11/24/2017 Status: F Source: [place] TIME 2:50 AM [facility] REPOSITORY TYPE CODE TESTS RESULT OUT OF RANGE REFERENCE UNITS LAB L300.4310 24.1-36.2 Seconds Normal PTT 29.9 Performed By: #### L300.4310 #### [facility] [address] [place], [place], [address] URINALYSIS, ROUTINE Collected: 11/23/2017 Status: F Source: [place] (DIPSTICK) 11:57 PM [facility] REPOSITORY Order Comment: How was Urine Obtained? ASPHALT LAYER TO SPECIFY TYPE CODE TESTS RESULT OUT OF RANGE REFERENCE UNITS LAB L400.3000 Yellow COLOR Normal Yellow LAB L400.3050 Clear Normal CLARITY Sl. Cloudy LAB L400.3200 Normal mg/dl Normal GLUCOSE, UR Normal LAB L400.3300 Negative mg/dL Normal BILIRUBIN URINE Negative LAB L400.3400 Negative mg/dl Normal KETONE UR Negative LAB L400.3465 1.002-1.030 Normal SP.GR. DIPSTX 1.010 LAB L400.3550 5.0 - 8.0 pH UR Normal 6.0 LAB L400.3600 Negative mg/dl PROT Normal DIPSTX Negative LAB L400.3700 Normal mg/dl High 1 UROBILI LAB L400.3750 Negative Normal NITRITE UR Negative LAB L400.3780 Negative /ul Normal OCCULT BLOOD-UR Negative LAB L400.3800 Negative /ul High LEUK 25 ESTERASE Performed By: #### L400.2010, L400.7600 #### [facility] [address] [place], [place], [address] ,URINE Collected: 11/23/2017 Status: F Source: [place] 11:57 PM [facility] REPOSITORY Order Comment: How was Urine Obtained? ASPHALT LAYER TO SPECIFY TYPE CODE TESTS RESULT OUT OF REFERENCE UNITS RANGE LAB L400.8000 Negative Normal HCGUQUAL Negative Result Comment: Very dilute urine specimens, as indicated by a low specific gravity, may not contain payable representative levels of hCG. If is still suspected, a first morning urine specimen should be collected 48 hours later and tested. Performed By: #### L400.2010, L400.7600 #### [facility] [address] [place], [place], [address] TROPONIN-I Collected: 11/23/2017 Status: F Source: [place] 9:21 PM [facility] REPOSITORY Order Comment: 'TROP' Serial specimen #1, #2 or #3: 3 TYPE CODE TESTS RESULT OUT OF RANGE REFERENCE UNITS LAB L501.4010 <0.045 ng/mL High 0.121 TROPONIN-I Result Comment: TROPONIN-I EXPECTED VALUES <0.045 Negative 0.045 - 0.590 Consistent with Cardiac Damage > OR = 0.600 Critical Value Not every elevated troponin is indicative of AL. These values should be used with clinical judgement in examining the patient's clinical picture for diagnosis. To establish a diagnosis of AL versus myocardial injury, there must be a demonstrated rise and/or fall in the troponin values, in addition to ischemic symptoms, EKG changes, new regional wall motion abnormality, and/or angiographical evidence. PLEASE NOTE: REFERENCE RANGES EDITED 17 Performed By: #### L501.4010 #### [facility] [address] [place], [address] PARTIAL THROMBOPLAST Collected: 11/23/2017 Status: C Source: [place] TIME 6:57 PM [facility] REPOSITORY TYPE CODE TESTS RESULT OUT OF REFERENCE UNITS RANGE LAB L300.4310 24.1-36.2 Seconds High alert PTT 133.5 Result Comment: CRITICAL VALUE VERIFIED. CALLED TO JUSTIN ROBLES IN U 11/23/172307 Komal Tirado. RESULTS READ BACK BY SAME . AMENDED REPORT 11/23/172307 PTT previously reported as: 133.5 *H Seconds Performed By: #### L300.4310 #### [facility] [address] [place], [address] CONSULTATION Observed: 11/23/2017 Status: F Source: [place] 5:27 PM [facility] REPOSITORY [facility] Medical Records Department [address] [place] [address] Consultation 11/23/17 1720 MR#: [id number] Acct: [id number] Name: TENA CABRALES Rep #: [id number] : 1965 52 From: Chaz Crawford MD PCP: Palmer Arguello DO Status: ADM IN Y Location: [place] [address] Problem List (1) Unstable angina Status: Acute (2) NSTEMI (non-ST elevated myocardial infarction) Status: Acute (3) Hypertension Status: Chronic Qualifiers: Hypertension type: essential hypertension Qualified Code(s): I10 - Essential (primary) hypertension Reason for Consult Date of Consultation: 11/23/17 History of Present Illness: The patient is a 52 year old white female with a past medical history of hypertension who presents for evaluation of symptoms concerning for unstable angina pectoris and an abnormal troponin I level concerning for an acute non-ST segment elevation AL. The patient states to the best of her knowledge she has no previous cardiovascular history other than her hypertension. She was in her usual state of health until recently when she felt she was cramping all over from dehydration. She increased her fluid intake including agents such as Gatorade. She noted her cramping sensation abated. 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 This created a discomfort across her chest without significant radiation or other associated symptoms other than dyspnea. Her symptoms abated when she was resting. She has had no orthopnea, PND, or peripheral pitting edema. There has been no near syncope or syncope. She denies any recent illnesses or emotionally stressful events. She presented to her primary care physician office earlier this day. An ECG was obtained. She was noted to have sinus rhythm with T-wave changes compatible with myocardial ischemia in the anterior, lateral, and inferior distributions. She was subsequently referred to the emergency department for further evaluation. There she had an abnormal troponin I level. A repeat ECG appeared to be similar. However, after she was in the emergency department for a period of time resting, her ECG was repeated which demonstrated her previous T-wave inversions returning towards baseline. She was treated for the aforementioned changes and subsequently admitted to the PCU for further evaluation and care. [] Past Medical History Allergies/Adverse Reactions: Allergies No Known Allergies Allergy (Verified 11/23/17 10:40) Home Medications: Ambulatory Orders Medication Instructions Recorded Losartan Potassium 1 tab PO DAILY 11/23/17 Pnv No.122/Iron/Folic Acid 1 each PO DAILY 11/23/17 [ Multi Tablet] Past Medical History (Chronic Problems): Chronic Problems Hypertension (Chronic) Surgical History: no surgical history Psychiatric History: No pertinent psych hx - *Family History Maternal History Items: Hypertension Paternal History Items: Cancer Lives: Spouse/ Significant Other Smoking Status: Never smoker Tobacco Use: Non-smoker Alcohol: None Drugs: None Review of Systems - Review of Systems General: Denies: Fever, Night Sweats, Fatigue Cardiovascular: Reports: Chest Discomfort, Chest Discomfort with Exertion, Shortness of Breath, Shortness of Breath with Exertion. Denies: Orthopnea, PND, Peripheral Edema, Palpitations, Lightheadedness, Dizziness, Near Syncope, Syncope Respiratory: Denies: Cough, Sputum Production, Hemoptysis Gastrointestinal: Denies: Hematemesis, Hematochezia, Melena Genitourinary: Denies: Dysuria, Hematuria Skin: Denies: Rash Subjectve: This is a 52-year-old white female who appears to be resting comfortably at the moment in no acute distress. Objective: Vital Signs Temp Pulse Resp BP Pulse Ox 99.1 F 94 16 94/64 97 11/23/17 10:37 11/23/17 15:38 11/23/17 13:20 11/23/17 13:20 11/23/17 15:30 Oxygen Delivery Method Room Air Weight: 204 lb 2.369 oz Body Mass Index (BMI) 31.9 General: Awake, Alert, Oriented x 3, Cooperative, No Acute Distress HEENT: Atraumatic, Normocephalic, PERRL, EOMI, Sclera Non Icteric Oral: Moist Mucosa Neck: Supple, Good ROM, No JVD Lungs: Clear to auscultation Cardiovascular: Regular Rhythm, Normal S1, Normal S2 Murmur Murmur: Grade 3/6, Harsh, Mid Systolic, LLSB, LVOT, Sternal Notch Vascular: No Carotid Bruits Abdomen: Bowel Sounds Present, Soft, Non Tender Extremities: No Cyanosis, No Clubbing, No edema Neurological: No Focal Motor or Sensory Deficit Psych/Mental Status: Appropriate, Normal Affect Rhythm: Sinus rhythm EKG: As noted above ECHO: Pending CXR: Preliminary evaluation: No acute cardiopulmonary disease process appreciated Assessment/Plan 1. Unstable angina pectoris The patient presents with symptoms concerning for unstable angina pectoris. She has been undergoing noninvasive evaluation thus far. She has been treated medically. She appears to be symptomatically improved at rest. She will continue to be monitored. She will continue medical management. It has been recommended she be considered for further evaluation with diagnostic cardiac catheterization. The procedure and risks were discussed with her and she was agreeable to this approach. 2. Non-ST segment elevation AL The patient has the aforementioned clinical presentation as well as objective findings with an abnormal troponin I level and ECG changes with waxing and waning T-wave changes. At the moment patient appears to be symptomatically stable. She will continue medical management. She will be recommended for further evaluation with diagnostic cardiac catheterization. 3. Hypertension The patient states her blood pressures been well controlled on her medications. Her blood pressures will be followed. Her medications will be adjusted as she goes to her evaluation and care. Comment: The above was discussed with the patient, her multiple family members present, and the [facility] emergency department staff. This note was generated with [employer] software. It may contain incorrect words, spelling, and punctuation that were not noted in checking the note before signing. 11/23/17 1727 <Electronically signed by Chaz Crawford MD> Date Chaz Crawford MD Cosigner Signature (if applicable): Date CC: Palmer Arguello DO; Chaz Crawford MD Signed HISTORY AND PHYSICAL Observed: 11/23/2017 Status: F Source: [place] EXAM 4:53 PM [facility] REPOSITORY [facility] Medical Records Department [address] [place] [address] History and Physical 11/23/17 1239 MR#: [id number] Acct: [id number] Name: TENA CABRALES Rep #: [id number] : 1965 52 From: Raina Loaiza MD PCP: Palmer Arguello DO Status: ADM IN Location: [place] [address] Problem List (1) Unstable angina Status: Acute (2) NSTEMI (non-ST elevated myocardial infarction) Status: Acute (3) Hypertension Status: Chronic Qualifiers: Hypertension type: essential hypertension Qualified Code(s): I10 - Essential (primary) hypertension History of Present Illness Date of Admission: 11/23/17 Chief Complaint: Chest pain - 6 days The patient is a 52 year old F with PMHx of hypertension, who comes with chest pain ongoing for 6 days. Chest pain described as substernal, pressure-like, nonradiating worse with exertion for the first 2 days. Subsequently chest pain occured at rest and with minimal exertion. Denied any diaphoresis, nausea or vomiting but felt very weak and lightheaded. She thought it was because she was dehydrated and started to hydrate herself with Gatorade which seemed to help the symptoms a little bit. She eventually became bedbound because with a minimal exertion she gets severe chest pain that takes several minutes to resolve. Vitals in the ED with a stable. Admitting blood work was unremarkable. EKG initially showed T-wave inversions in the anterolateral leads, repeat EKG shows improvement and normalization of the T waves. Her initial troponin was slightly elevated Past Medical History Past Medical History (Chronic Problems): Chronic Problems Hypertension (Chronic) Allergies No Known Allergies Allergy (Verified 11/23/17 10:40) Home Medications: Ambulatory Orders Medication Instructions Recorded Losartan Potassium 1 tab PO DAILY 11/23/17 Pnv No.122/Iron/Folic Acid 1 each PO DAILY 11/23/17 [ Multi Tablet] Surgical History: no surgical history Psychiatric History: No pertinent psych hx Lives: Spouse/ Significant Other Smoking Status: Never smoker Tobacco Use: Non-smoker Alcohol: None Drugs: None - *Family History Maternal History Items: Hypertension Paternal History Items: Cancer Review of Systems Constitutional: Reports: Weakness. Denies: Anorexia, Chills, Fever, Weight Change Eyes: Denies: Blurred vision, Cataracts HEENT: Denies: Difficulty Hearing, Difficulty Swallowing, Head Aches, Hearing Changes, Sinus Congestion, Sinus Drainage Cardiovascular: Reports: Chest Pain, Chest Pressure, Chest Tightness, Light Headedness. Denies: Edema, Orthopnea, Palpitations, Paroxysmal Noc. Dyspnea, Syncope Respiratory: Denies: Cough, Hemoptysis, Shortness of breath at rest, Shortness of breath upon exertion, Sputum production Gastrointestinal: Denies: Abdominal Pain, Constipation, Hematemesis, Nausea, Vomiting Genitourinary: Denies: Dysuria Musculoskeletal: Denies: Joint Pain, Joint stiffness, Joint swelling, Joint Tenderness Skin: Denies: Rash, Wounds Neurological: Denies: Numbness, Tingling, Focal weakness Psychiatric: Denies: Anxiety, Depression, Homicidal Ideations, Suicidal Ideations Hematologic/ Lymphatic: Denies: Easy Bruising, Easy Bleeding VTE Information - Inpt Only VTE Present on Admission: No VTE Pharm Prophylaxis ordered?: Yes Patient Problems: Active and Suspected Problems Unstable angina (Acute) NSTEMI (non-ST elevated myocardial infarction) (Acute) - Physical Exam General: Alert, Oriented x3, Cooperative, No apparent distress, - HEENT: Atraumatic, PERRLA, EOMI, Normocephalic Oral: Moist Mucosa - Appears anxious Neck: Supple, No JVD, Negative Carotid Bruits Lungs: Clear to auscultation, Normal air movement Cardiovascular: Regular rate, Regular Rhythm, Normal S1, Normal S2, No murmurs Abdomen: Bowel Sounds Present, Soft, Non Tender, Non-Distended, No Hepato-splenomegaly Extremities: No edema Skin: No rashes, No breakdown Musculoskeletal: No Tenderness to Palpation of Joints or Extremities Lymphatic: No Cervical, Supraclavicular, or Inguinal Adenopathy Neurological: Cranial nerves II-XII grossly intact, Neuro grossly intact Psych/Mental Status: Normal Affect, Appropriate Vital Signs Temp Pulse Resp BP Pulse Ox 99.1 F 98 21 H 111/72 98 11/23/17 10:37 11/23/17 12:11 11/23/17 12:11 11/23/17 12:11 11/23/17 12:11 Oxygen Delivery Method Room Air Weight: 95.4 kg Body Mass Index (BMI) 32.9 Laboratory Tests Past 24 Hrs WBC 6.2 RBC 4.11 L Hgb 13.6 Hct 41.1 MCV 100.0 H MCH 33.1 H MCHC 33.1 RDW 13.0 RDW Differential 47.3 H Assessment/Plan All Active Problems Unstable angina (Acute) NSTEMI (non-ST elevated myocardial infarction) (Acute) 52 year old F with PMHx of hypertension, who comes with chest pain ongoing for 6 days. Chest pain described as substernal, pressure-like, nonradiating worse with exertion for the first 2 days. Subsequently chest pain occured at rest and with minimal exertion. 1. Chest pain, typical, concerning for NSTEMI/UA, TANMAY score of 2, started on heparin drip, loaded on Brilinta, Cardiology consulted; per ED, patient will be taken to cardiac cath today Plan: Admit to PCU, monitor on telemetry, trend troponins, continue on heparin drip, continue on Brilinta, beta-dona, aspirin, statin, lipid profile in a.m. 2. Hypertension, on losartan, continue same 3. Anxiety disorder, not on any home meds, likely situtational, will put on prn Ativan 4. DVT PPx- on Heparin drip. Code Visit Inpatient E AND M: 87978 Init Hosp L3 11/23/17 1653 <Electronically signed by Raina Loaiza MD> Date Raina Loaiza MD Cosigner Signature: Date (if applicable) CC: Raina Loaiza MD; Palmer Arguello DO Signed CBC W/DIFF, AUTOMATED Collected: 11/23/2017 Status: F Source: [place]EL[place] 11:26 AM [facility] REPOSITORY TYPE CODE TESTS RESULT OUT OF RANGE REFERENCE UNITS LAB L100.1000 4.4-11.0 K/mm3 Normal WBC 6.2 LAB L100.1200 4.2-5.4 M/mm3 Low RBC 4.11 LAB L100.1300 12.0-15.0 g/dl Normal HGB 13.6 LAB L100.1400 37-47 % Normal HCT 41.1 LAB L100.1500 81-99 fL High MCV 100.0 LAB L100.1600 27.0-32.0 pg High MCH 33.1 LAB L100.1700 32-36 g/gl Normal MCHC 33.1 LAB L100.1810 11.6-14.6 % Normal RDW CV 13.0 LAB L100.1820 35.1-43.9 fl High RDW SD 47.3 LAB L100.1900 150-450 K/mm3 Low PLT 130 LAB L100.2000 6.2-12.0 fl Normal MPV 9.8 LAB L100.2100 47-70 % High NEUT% 73.6 LAB L100.2200 19-41 % Low LY% 18.4 LAB L100.2300 0-10 % Normal MONO% 7.1 LAB L100.2400 0-5 % Normal EO% 0.6 LAB L100.2500 0-1 % Normal BASO% 0.3 LAB L100.2550 0.0-0.9 % Normal IM GRAN % 0.000 Result Comment: IG% - Immature Granulocytes (promyelocytes, myelocytes and metamyelocytes) > 1% indicates that a LEFT SHIFT is Present. LAB L100.2620 2.0-7.7 X10 3/uL Normal Absolute Neut 4.6 LAB L100.2720 0.83-4.51 X10 3/ul Normal Absolute Lymph 1.14 Performed By: #### L100.0100 #### [facility] [address] [place], [address] BASIC METABOLIC Collected: 11/23/2017 Status: F Source: [place] PROFILE ([facility]) 11:26 AM [facility] REPOSITORY TYPE CODE TESTS RESULT OUT OF RANGE REFERENCE UNITS LAB L501.0100 74-106 mg/dL Normal GLU 89 Result Comment: Please note revised GLUCOSE reference range effective 2017. LAB L501.1000 7-18 mg/dL Normal BUN 7 LAB L501.1100 0.55-1.02 mg/dL Normal CREAT,SERUM 0.92 Result Comment: The validity of the calculated GFR AND GFRAA in patients over 70 years has not been determined. Clinical correlation is essential. LAB L501.1110 >60 mL/min Normal EST GFR 69 Result Comment: Non- GFR Calc LAB L501.1115 >60 mL/min Normal EST GFR - AA 83 Result Comment: GFR Calc LAB L501.1255 ml/min Normal Estimated CRCL 71.14 LAB L501.1300 10-20 RATIO Low BUN/CRE 7.6 LAB L501.2200 8.5-10 mg/dL Normal .1 CA 9.4 LAB L501.5300 136-14 mmol/L Low 5 NA 134 LAB L501.5600 3.5-5. mmol/L Normal 1 K 3.6 LAB L501.5900 98-107 mmol/L Normal CL 98 LAB L501.6100 21.0-3 mmol/L Normal 2.0 CO2 27.0 LAB L501.6200 5-15 Normal GAP 9 Performed By: #### L500.2500, L501.4010 #### [facility] [address] [place], [address] TROPONIN-I Collected: 11/23/2017 Status: F Source: [place] 11:26 AM [facility] REPOSITORY TYPE CODE TESTS RESULT OUT OF RANGE REFERENCE UNITS LAB L501.4010 <0.045 ng/mL High 0.174 TROPONIN-I Result Comment: TROPONIN-I EXPECTED VALUES <0.045 Negative 0.045 - 0.590 Consistent with Cardiac Damage > OR = 0.600 Critical Value Not every elevated troponin is indicative of AL. These values should be used with clinical judgement in examining the patient's clinical picture for diagnosis. To establish a diagnosis of AL versus myocardial injury, there must be a demonstrated rise and/or fall in the troponin values, in addition to ischemic symptoms, EKG changes, new regional wall motion abnormality, and/or angiographical evidence. PLEASE NOTE: REFERENCE RANGES EDITED 17 Performed By: #### L500.2500, L501.4010 #### [facility] [address] [place], [address] PARTIAL THROMBOPLAST Collected: 11/23/2017 Status: F Source: [place] TIME 11:26 AM [facility] REPOSITORY TYPE CODE TESTS RESULT OUT OF RANGE REFERENCE UNITS LAB L300.4310 24.1-36.2 Seconds Normal PTT 27.4 Performed By: #### L300.4310 #### [facility] [address] [place], [address] PROTHROMBIN TIME W/INR Collected: 11/23/2017 Status: F Source: [place] 11:26 AM [facility] REPOSITORY TYPE CODE TESTS RESULT OUT OF RANGE REFERENCE UNITS LAB L300.4150 11.7-14.9 SECONDS Normal PROTIME 12.8 LAB L300.4200 Normal INR 1.0 Performed By: #### L300.3900 #### [facility] [address] [place], [address] LIVER PROFILE Collected: 11/23/2017 Status: F Source: [place] 11:26 AM [facility] REPOSITORY TYPE CODE TESTS RESULT OUT OF RANGE REFERENCE UNITS LAB L501.1500 6.4-8.2 g/dL Normal T PROT 7.9 LAB L501.1800 3.2-5.0 g/dL Normal ALB 3.4 LAB L501.1950 2.2-4.2 g/dL High GLOB 4.5 LAB L501.4100 15-37 U/L Normal AST 27 LAB L501.4305 45-117 U/L Normal ALK P 65 LAB L501.4405 13-56 U/L Normal ALT 28 LAB L501.4600 0.20-1.00 mg/dL Normal T BILI 0.50 LAB L501.4700 0.00-0.30 mg/dL Normal D BILI 0.17 Performed By: #### L500.3400 #### [facility] [address] [facility] [place], [address] CHEST 1 VIEW Observed: 11/23/2017 Status: F Source: [place] (PORTABLE) 11:17 AM [facility] REPOSITORY [facility] Imaging Services [address] [place] [address] Chest 1 View (Portable) MR#: [id number] Acct: [id number] Name: TENA CABRALES Rep #: [id number] : 1965 F 52 From: Michael Hoffmann MD PCP: Palmer Arguello DO Status: REG ER Study: Chest 1 View (Portable) Date of Exam: 11/23/17 Exam# [id number] Ordering Dr: Heron Padilla DO STUDY: X-RAY CHEST REASON FOR EXAM: Female, 52 years old. Chest pain TECHNIQUE: PA and lateral views of the chest. COMPARISON: None. FINDINGS: The lungs are clear and expanded. There is no demonstrated pleural abnormality. Normal size heart. Normal mediastinum and rae. Normal visualized pulmonary arteries. Normal visualized aortic arch and descending thoracic aorta. Normal visualized thoracic spine. Normal visualized ribs, clavicles, and shoulders. There is no demonstrated abnormality of the visualized soft tissue structures of the upper abdomen. RAD/Chest 1 View (Portable) IMPRESSION: Normal x-ray examination of the chest. Electronically Signed: Michael Hoffmann MD at 11:45 EDT Tel , Service support , CC: Palmer Arguello DO; Heron Padilla DO Cooler Service Supervisor: Signed EMERGENCY DEPARTMENT Observed: 07/15/2017 Status: F Source: [place] SUMMARY 5:11 PM [facility] REPOSITORY [facility] Medical Records Department [address] [place] [address] Emergency Department Summary 07/15/17 0708 MR#: [id number] Acct: [id number] Name: TENA CABRALES Rep #: [id number] : 1965 51 From: Louis Rosa MD PCP: Palmer Arguello DO Status: DEP ER - ER Visit Summary Date of Service: 07/15/17 Chief Complaint: Right knee pain History of Present Illness: The patient is a [address] Arguello. She reports that yesterday she was putting her shoe on and lost her balance. She fell and injured her right knee. She is unsure whether she tell us that it awkwardly or landed on it. States that she had minimal pain initially, but over the course the night the pain is gotten much worse. Is an aching pain that is 10 out of 10 with movement or walking. She is pain-free at rest. She denies any other injuries. No loss of consciousness, neck, back, shoulder, or wrist pain. Physical Examination: Vitals: Stable. Afebrile. Neck: No vertebral tenderness. Full ROM without difficulty. Cleared by NEXUS criteria. Back: No vertebral tenderness. General: A AND O x 3. NAD. Cardiovascular exam: Regular rate and rhythm, no murmur, rub or gallop. Respiratory exam: Chest nontender. No crepitus. Clear to auscultation bilaterally. No wheezes or stridor. Abdominal exam: Soft, nontender, nondistended, normal bowel sounds. No pain in RUQ or LUQ specifically. No peritoneal signs. Extremity: Moderate diffuse tenderness palpation over her right knee. There is a small joint effusion, the exam is limited by body habitus. She has pain with posterior drawer, but no ligamentous instability. No pain with anterior drawer/medial/lateral stress. No ligamentous instability. Negative Celina. Test Results: Right knee x-ray shows no fracture. Emergency Department Course and Treatment: Patient was treated with naproxen and [place] p.o. She is resting comfortably. Treatment Plan: Patient will be discharged with [place] and naproxen. Instructed to follow-up Dr. Jose E Clarke in 1 week if not improving. Disposition: To home in improved and stable condition. Impression: 1. Right knee pain, acute. This note was generated with Certess dictation software. It may contain incorrect words, spelling, and punctuation that were not noted in review of the chart prior to signing ED Disposition - Plan for ED Patient: Chief Complaint: Lower Extremity Injury Instructions: ED Knee Pain UKO Prescriptions: Hydrocodone Bitart/Apap 5-325 [[place] 5/325] 1 - 2 tablet PO Q4H PRN PRN 3 Days #20 tablet PRN Reason: Pain Naproxen [Naprosyn] 500 mg PO BID #20 tablet Referrals: Jose E Clarke MD [STAFF PHYSICIAN] - 1 Week if not improving What to do if you have Problems For any increased pain, shortness of breath, bleeding, nausea or vomiting, chest pain, or any unexpected problems, contact your Primary Care Provider. Call [facility] ([phone]) or report to the closest Emergency Room. Call 911 if necessary. 07/15/17 1711 <Electronically signed by Louis Rosa MD> Date Louis Rosa MD Cosigner Signature (If Indicated): Date CC: Palmer Arguello DO KNEE 4 OR MORE Observed: 07/15/2017 Status: F Source: MICHAELA VIEWS 7:04 AM [facility] REPOSITORY [facility] Imaging Services [address] [place] [address] Knee 4 or More Views MR#: [id number] Acct: [id number] Name: TENA CABRALES Rep #: [id number] : 1965 F 51 From: Neville Torres PCP: Palmer Arguello DO Status: REG ER Study: Knee 4 or More Views Date of Exam: 07/15/17 Exam# [id number] Ordering Dr: Louis Rosa MD STUDY: X-RAY - RIGHT KNEE REASON FOR EXAM: Female, 51 years old. Fall TECHNIQUE: 4 view(s) of the knee. COMPARISON: None. FINDINGS: Normal visualized distal femur. Normal visualized proximal tibia and fibula. Normal proximal tibiofibular articulation. There is no demonstrated fracture. Normal medial femorotibial compartment. Normal lateral femorotibial compartment. 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 There is a soft tissue prominence in the suprapatellar region suggesting a small volume joint effusion. The soft tissue structures are unremarkable. RAD/Knee 4 or More Views IMPRESSION: There is NO fracture or malalignment. 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 There is a small joint effusion. Electronically Signed: Neville Torres MD at 7:46 EDT , Service support , CC: Palmer Arguello DO; Louis Rosa MD Cooler Service Supervisor: Signed ALLERGIES ALLERGIES DATE TYPE / CODE NAME / CODE REACTION SEVERITY SOURCE 04/12/2018 Drug No Known Unknown [facility] Allergy/4160 Allergies/F00 [facility] 92156(SNOMED [id number](RXNOR Repository CT) M) ENCOUNTERS ENCOUNTERS ADMIT/DISCHARGE ACCOUNT ADMITTING ENCOUNTER LOCATION SOURCE NUMBER CLASS 04/13/2018 [id number] Ambulatory [place] Michaela 1 [facility] ing:LAB Repository 04/12/2018/ [id number] Ambulatory BMSBuilding:B [place] 8 3 [facility] Repository 03/14/2018 [id number] Ambulatory [place] Michaela 7 [facility] ing:CR Repository 02/01/2018/ [id number] Ambulatory [place] 8 8 [facility] ing:CR Repository 01/22/2018/ [id number] Ambulatory [place] 8 1 [facility] ing:CR Repository 12/30/2017 [id number] Ambulatory BMSBuilding:W [place] 0 [facility] Repository 12/30/2017 [id number] Ambulatory [place] Michael[place] 7 [facility] ing:[facility] Repository 12/25/2017/ [id number] Ambulatory [place] 8 3 [facility] ing:CR Repository 12/24/2017/ [id number] Ambulatory BMSBuilding:B [place] 8 3 [facility] Repository 12/21/2017 [id number] Ambulatory [place] Michael[place] 5 [facility] ing:CR Repository 12/08/2017 [id number] Ambulatory BMSBuilding:B [place] 9 [facility] Repository 12/08/2017/ [id number] Ambulatory BMSBuilding:B [place] 8 6 [facility] Repository 11/30/2017/ [id number] Ambulatory BMSBuilding:B [place] 8 7 [facility] Repository 11/25/2017/ [id number] Ambulatory BMSBuilding:B [place] 8 8 [facility] Repository 11/23/2017 [id number] [place] Ambulatory BMSBuilding:B [place] 5 MS.[facility] Repository 11/23/2017 [id number] [place] Ambulatory BMSBuilding:B [place] 2 [facility] Repository 11/23/2017 [id number] [place] Ambulatory BMSBuilding:B [place] 9 MS.[facility] Repository 11/23/2017 [id number] [place] Ambulatory BMSBuilding:B [place] 9 [facility] Repository 11/23/2017/ [id number] [place] Inpatient [place] 8 8 Encounter [facility] ing:PCURoom: Repository [id number]: 1 07/15/2017/ [id number] Emergency [place] 8 3 [facility] ing:ED Repository PAYERS PAYERS ENCOUNTER GUARANTOR PAYER SUBSCRIBER SOURCE 04/13/2018 TENA Primary TENA [place] [id number] Insurance:ANTHEMPolic FELTNERDOB: [facility] SMUCKER y Number: [id number] [id number] Repository [address]Byr: (330) Date:8626-72-80VL [phone] () 824201XJZBJSC, [place] [address]WW: 04/13/2018 Secondary NOT GIVENUNK [place] Insurance:SELF PAY [facility] Number: Effective Repository Date:2018-04-13 04/12/2018 TENA Primary TENA [place] [id number] Insurance:ANTHEMPolic FELTNERDOB: [facility] EstadebodaUCKER y Number: [id number] [id number] Repository [address]Xpo: (330) Date:0781-57-81YZ [phone] () 455588JWOJQLU, [place] [address]VW: 04/12/2018 Secondary NOT GIVENUNK [place] Insurance:SELF PAY [facility] Number: Effective Repository Date:2018-04-12 03/14/2018 TENA Primary TENA [place] [id number] Insurance:ANTHEMPolic FELTNERDOB: [facility] SMUCKER y Number: [id number] [id number] Repository [address]Vsr: (330) Date:5300-15-82UC [phone] () 971889YXLHNIELINDSEY [place] [address]PA: 03/14/2018 Secondary NOT GIVENUNK [place] Insurance:SELF PAY [facility] Number: Effective Repository Date:2018-03-04 02/01/2018 TENA Primary TENA [place] [id number] Insurance:ANTHEMPolic FELTNERDOB: Community SMUCKER y Number: [id number] [id number] Repository [address]Ezr: (330) Date:6728-82-00CA [phone] () 356016VIOFQIALINDSEY MATTSON [address]KE: 02/01/2018 Secondary NOT GIVENUNK [place] Insurance:SELF PAY [facility] Number: Effective Repository Date:2018-02-01 01/22/2018 TENA Primary TENA [place] [id number] Insurance:ANTHEMPolic FELTNERDOB: Community SMUCKER y Number: [id number] [id number] Repository [address]Zke: (330) Date:8149-29-51FG [phone] () [id number] MATTSON [address]XM: 01/22/2018 Secondary NOT GIVENUNK [place] Insurance:SELF PAY [facility] Number: Effective Repository Date:2018-01-02 12/30/2017 TENA Primary TENA [place] [id number] Insurance:ANTHEMPolic FELTNERDOB: Community SMUCKER y Number: [id number] [id number] Repository [address]Wjx: (330) Date:2873-64-62HM [phone] () 459237PGTXSDTLINDSEY MATTSON [address]OK: 12/30/2017 Secondary NOT GIVENUNK [place] Insurance:SELF PAY [facility] Number: Effective Repository Date:2017-12-30 12/30/2017 TENA Primary TENA [place] [id number] Insurance:ANTHEMPolic FELTNERDOB: Community SMUCKER y Number: [id number] [id number] Repository [address]Iui: (330) Date:0988-84-62QB [phone] () 794786ALSKADVLINDSEY MATTSON [address]DW: 12/30/2017 Secondary NOT GIVENUNK [place] Insurance:SELF PAY [facility] Number: Effective Repository Date:2017-12-24 12/25/2017 TENA Primary TENA [place] [id number] Insurance:ANTHEMPolic FELTNERDOB: Community SMUCKER y Number: [id number] [id number] Repository [address]Eqh: (330) Date:9698-00-88VF [phone] () 580006HUISRQE, [place] [address]YY: 12/25/2017 Secondary NOT GIVENUNK [place] Insurance:SELF PAY [facility] Number: Effective Repository Date:2017-12-21 12/24/2017 TENA Primary TENA [place] [id number] Insurance:ANTHEMPolic FELTNERDOB: Community SMUCKER y Number: [id number] [id number] Repository [address]Dfx: (330) Date:0271-79-45RQ [phone] () [id number], [place] [address]VE: 12/24/2017 Secondary NOT GIVENUNK [place] Insurance:SELF PAY [facility] Number: Effective Repository Date:2017-12-24 12/21/2017 TENA Primary TENA [place] [id number] Insurance:ANTHEMPolic FELTNERDOB: Community SMUCKER y Number: [id number] [id number] Repository [address]Kwv: (330) Date:5104-88-74TL [phone] () [id number] MATTSON [address]LB: 12/21/2017 Secondary NOT GIVENUNK [place] Insurance:SELF PAY [facility] Number: Effective Repository Date:2017-12-01 12/08/2017 TENA Primary TENA [place] [id number] Insurance:ANTHEMPolic FELTNERDOB: Community SMUCKER y Number: [id number] [place] [id number] Repository [address]Sso: (330) Date:1776-93-10SX [phone] () LINDSEY SMART [address]CN: 12/08/2017 Secondary NOT GIVENUNK [place] Insurance:SELF PAY [facility] Number: Effective Repository Date:2017-12-08 12/08/2017 TENA Primary TENA [place] [id number] Insurance:ANTHEMPolic FELTNERDOB: Community SMUCKER y Number: [id number] [place] [id number] Repository [address]Vcf: (330) Date:9428-56-31ET [phone] () [id number], [place] [address]XB: 12/08/2017 Secondary NOT GIVENUNK [place] Insurance:SELF PAY [facility] Number: Effective Repository Date:2017-12-08 11/30/2017 TENA Primary TENA [place] [id number] Insurance:ANTHEMPolic FELTNERDOB: Community SMUCKER y Number: [id number] [place], [place] [id number] Repository [address]Aqc: (330) Date:6924-79-10RL [phone] () [id number] MATTSON [address]YV: 11/30/2017 Secondary NOT GIVENUNK [place] Insurance:SELF PAY [facility] Number: Effective Repository Date:2017-11-30 11/25/2017 TENA Primary TENA [place] [id number] Insurance:ANTHEMPolic FELTNERDOB: Community SMUCKER y Number: [id number] [place], [place] [id number] Repository [address]Fiq: (330) Date:6614-27-23JL [phone] () 605242RBHOYOP, [place] [address]XH: 11/25/2017 Secondary NOT GIVENUNK [place] Insurance:SELF PAY [facility] Number: Effective Repository Date:2017-11-25 11/23/2017 TENA Primary TENA [place] [id number] Insurance:ANTHEMPolic FELTNERDOB: Community SMUCKER y Number: [id number], [place] [id number] Repository [address]Yiw: (330) Date:8296-47-92RS [phone] () LINDSEY SMART [address]TA: 11/23/2017 Secondary NOT GIVENUNK [place] Insurance:SELF PAY [facility] Number: Effective Repository Date:2017-11-23 11/23/2017 TENA Primary TENA [place] [id number] Insurance:ANTHEMPolic FELTNERDOB: Community SMUCKER y Number: [id number] [place], [place] [id number] Repository [address]Vap: (330) Date:0193-88-98OI [phone] () LINDSEY SMART [address]NN: 11/23/2017 Secondary NOT GIVENUNK [place] Insurance:SELF PAY [facility] Number: Effective Repository Date:2017-11-23 11/23/2017 TENA Primary TENA [place] [id number] Insurance:ANTHEMPolic FELTNERDOB: Community SMUCKER y Number: [id number] [place], [place] [id number] Repository [address]Pct: (330) Date:5569-55-92CW [phone] () 901430EUROMOILINDSEY MATTSON [address]LT: 11/23/2017 Secondary NOT GIVENUNK [place] Insurance:SELF PAY [facility] Number: Effective Repository Date:2017-11-23 11/23/2017 TENA Primary TENA [place] [id number] Insurance:ANTHEMPolic FELTNERDOB: Community SMUCKER y Number: [id number] [place], [place] [id number] Repository [address]Asj: (330) Date:9674-99-24VQ [phone] () [place] [address]RK: 11/23/2017 Secondary NOT GIVENUNK [place] Insurance:SELF PAY [facility] Number: Effective Repository Date:2017-11-23 11/23/2017 TENA Primary TENA [place] [id number] Insurance:ANTHEMPolic FELTNERDOB: Community SMUCKER y Number: [id number] [place], [place] [id number] Repository [address]Rwr: (330) Date:9572-48-88TC [phone] () 305235ZHXWZVW, [place] [address]CJ: 11/23/2017 Secondary NOT GIVENUNK [place] Insurance:SELF PAY [facility] Number: Effective Repository Date:2017-11-23 07/15/2017 TENA Primary TENA [place] [id number] Insurance:ANTHEMPolic FELTNERDOB: Community SMUCKER y Number: [id number] [place], [place] [id number] Repository [address]Jkk: (330) Date:5875-82-15YU [phone] () [id number], [place] [address]ZT: 07/15/2017 Secondary NOT GIVENUNK [place] Insurance:SELF PAY [facility] Number: Effective Repository Date:2017-07-15
== END ==
PROVIDERS: Family Provider Family Medicine; PCP Family Medicine; Referring Provider Internal Medicine Cardiovascular Disease; Visit Provider Internal Medicine Cardiovascular Disease
DX: I21.4 Non-ST elevation (NSTEMI) myocardial infarction (principal)
CPT/HCPCS: 36415; 80061; 80076

== ENCOUNTER → 2018-11-09 | Outpatient (CLI) | payer BC, SELFPAY ==
[2018-04-12 13:34] VITALS: BMI 31.9
[2018-11-09 09:32] LABS: Anion Gap 11 (5-15); BUN 17 mg/dL (7-18); BUN/Creat Ratio 15.5 RATIO (10-20); Calcium,Total 8.1 mg/dL (8.5-10.1); Chloride 101 mmol/L (98-107); EST Glomerular Filtration Rate 56 mL/min (>60); Est Glom Filt Rate - Afr Amer 67 mL/min (>60); Glucose 78 mg/dL (74-106); Potassium 3.8 mmol/L (3.5-5.1); Sodium Level 138 mmol/L (136-145)
== END | disposition home or self-care (01) ==
LOC: LAB 08:09
PROVIDERS: Nurse Practitioner Family; Family Provider Family Medicine; PCP Family Medicine; Referring Provider Internal Medicine Cardiovascular Disease; Visit Provider Internal Medicine Cardiovascular Disease
DX: I10 Essential (primary) hypertension (principal); I20.0 Unstable angina; I51.81 Takotsubo syndrome; I25.2 Old myocardial infarction; Z98.890 Other specified postprocedural states
CPT/HCPCS: 36415; 80048

== ENCOUNTER → 2019-06-13 | Outpatient (CLI) | payer BC, SELFPAY ==
[2019-05-25 10:02] VITALS: BMI 32.4
--- NOTE | 2019-06-13 09:35 | ECHOCS_ITS ---
Reason For Study: Palpitations Procedure This was a 2D Doppler, Color Flow transthoracic echocardiogram. The study was technically difficult. Contrast injection was performed. Exam performed in department. Left Ventricle Normal LV size. Left ventricular systolic function is normal. The estimated ejection fraction is 60 %. No evidence for diastolic dysfunction. No regional wall motion abnormalities noted. Right Ventricle Normal RV size. Normal systolic function. Atria Normal left atrium. Normal right atrium. No doppler evidence for ASD. Mitral Valve There is no mitral annular calcification. Normal mitral valve. Trivial mitral valve insufficiency. Tricuspid Valve Normal tricuspid valve. Trivial tricuspid valve insufficiency. Unable to estimate RV systolic pressure/pulmonary artery pressure due to technically difficult study. Aortic Valve The aortic valve is not well visualized. Pulmonic Valve The pulmonic valve is not well visualized. Great Vessels The aortic root is not well visualized. Pericardium/Pleural No pericardial effusion. Medication 22 gauge I.V. with prn adaptor inserted into right arm. Diluted definity 3ml given slow IV push to enhance endocardial definition. MMode/2D Measurements & Calculations LVIDd: 4.8 cm IVSd: 0.99 cm LA dimension: 3.0 cm LVIDs: 2.6 cm LVPWd: 1.1 cm RVDd: 3.1 cm FS: 46.8 % LAV(MOD-bp): 34.3 ml LVAd ap4: 29.5 cm2 SV(MOD-sp4): 49.6 ml LAV(MOD-bp) Indexed: 16.1 ml/m2 EDV(MOD-sp4): 86.8 ml LAV(MOD-sp2): 39.5 ml EDV(sp4-el): 90.7 ml LAV(MOD-sp4): 29.7 ml LVAs ap4: 16.8 cm2 ESV(MOD-sp4): 37.3 ml ESV(sp4-el): 38.5 ml EF(MOD-sp4): 57.1 % EF(sp4-el): 57.5 % SV(sp4-el): 52.2 ml LA A4 area: 13.4 cm2 RA A4 area: 11.1 cm2 Time Measurements MV dec time: 0.27 sec Doppler Measurements & Calculations MV E max osman: 88.0 cm/sec Lat Peak E' Osman: 9.9 cm/sec Med Peak E' Osman: 9.6 cm/sec MV A max osman: 88.0 cm/sec E/E' lat: 8.9 E/E' med: 9.2 MV E/A: 1.0 MV V2 max: 100.2 cm/sec MV P1/2t max osman: 102.1 cm/sec Ao V2 max: 138.7 cm/sec MV max P.0 mmHg MV P1/2t: 106.8 msec Ao max P.7 mmHg MV V2 mean: 61.5 cm/sec Ao V2 mean: 89.2 cm/sec MV mean P.7 mmHg MV dec slope: 280.1 cm/sec2 Ao mean P.7 mmHg MV V2 VTI: 28.8 cm MVA(P1/2t): 2.1 cm2 Ao V2 VTI: 24.1 cm LV V1 max: 111.1 cm/sec PA V2 max: 124.2 cm/sec LV V1 max P.9 mmHg LV V1 mean P.5 mmHg LV V1 mean: 73.2 cm/sec LV V1 VTI: 21.9 cm Interpretation Summary The study was technically difficult. Contrast injection was performed. Left ventricular systolic function is normal. The estimated ejection fraction is 60 %. Trivial mitral valve insufficiency. Trivial tricuspid valve insufficiency. Unable to estimate RV systolic pressure/pulmonary artery pressure due to technically difficult study. No evidence for diastolic dysfunction. Ordering Physician: Chaz Pathak Performed By: Mike Gomez [facility]
== END | disposition home or self-care (01) ==
LOC: CVS 09:35
PROVIDERS: PCP Family Medicine; Visit Provider Internal Medicine Cardiovascular Disease
DX: I51.81 Takotsubo syndrome (principal); R00.2 Palpitations; I10 Essential (primary) hypertension
CPT/HCPCS: 93306; Q9957; A4216; C8929

== ENCOUNTER → 2021-04-04 14:33 | Outpatient (CLI) | payer BC, SELFPAY ==
[2021-04-04 15:16] LABS: Anion Gap 6 (5-15); BUN 26 mg/dL (7-18); BUN/Creat Ratio 17.9 RATIO (10-20); Calcium,Total 9.7 mg/dL (8.5-10.1); Chloride 101 mmol/L (98-107); Creatinine, Serum 1.45 mg/dL (0.55-1.02); EST Glomerular Filtration Rate 40 mL/min (>60); Est Glom Filt Rate - Afr Amer 49 mL/min (>60); Glucose 99 mg/dL (74-106); Magnesium 1.4 mg/dL (1.6-2.6); Sodium Level 137 mmol/L (136-145); T4 Free Direct 1.06 ng/dL (0.76-1.46); Thyroid Stim Hormone (TSH) 1.49 uIU/mL (0.358-3.74)
== END ==
PROVIDERS: Referring Provider Nurse Practitioner Family; Visit Provider Nurse Practitioner Family
DX: I10 Essential (primary) hypertension (principal); I51.81 Takotsubo syndrome; R00.2 Palpitations
CPT/HCPCS: 36415; 80048; 83735; 84439; 84443

== ENCOUNTER → 2022-09-16 | Outpatient (CLI) | payer BC, SELFPAY ==
[2022-09-16 15:29] LABS: Absolute Lymphocyte Count 1.17 X10^3/uL (0.83-4.51); Absolute Neutrophil Count 4.8 X10^3/uL (2.0-7.7); Basophil# 0.05 X10^3/uL; Basophil% 0.7 % (0-1); Eosinophil# 0.11 X10^3/uL; Eosinophils% 1.6 % (0-5); Hematocrit 41.7 % (37-47); Hemoglobin 14.1 g/dL (12.0-15.0); Lymphocyte # 1.17 X10^3/ul (0.83-4.51); Lymphocyte % 17.5 % (19-41); Mean Corp Hgb Conc 33.8 g/dL (32-36); Mean Corpuscular Hgb 34.6 pg (27.0-32.0); Mean Corpuscular Volume 102.2 fL (81-99); Mean Platelet Vol. 9.5 fl (6.2-12.0); Monocyte# 0.47 X10^3/uL; NRBC Flagged by Analyzer 0 % (0-5); Neutrophil # 4.84 X10^3/uL (2.7-7.7); Neutrophil % 72.8 % (47-70); Platelet Count 120 K/mm3 (150-450); RBC Distribution Width CV 11.4 % (11.6-14.6); RBC Distribution Width SD 42.8 fl (35.1-43.9); Red Blood Count 4.08 M/mm3 (4.2-5.4); White Blood Count 6.7 K/mm3 (4.4-11.0)
[2022-09-16 16:41] LABS: ALB/GLOB Ratio 0.8 RATIO (0.9-2.4); AST(SGOT) 175 U/L (15-37); Alanine Aminotransfer ALT/SGPT 152 U/L (13-56); Alkaline Phosphatase 85 U/L (45-117); Anion Gap 10 (5-15); BUN 29 mg/dL (7-18); BUN/Creat Ratio 16.5 RATIO (10-20); Calcium,Total 10.6 mg/dL (8.5-10.1); Chloride 96 mmol/L (98-107); Cholesterol 239 mg/dL (200); Creatinine, Serum 1.76 mg/dL (0.55-1.02); EST Glomerular Filtration Rate 32 mL/min (>60); Est Glom Filt Rate - Afr Amer 39 mL/min (>60); Globulin 4.8 g/dL (2.2-4.2); Glucose 97 mg/dL (74-106); High Density Lipoprotein 116 mg/dL; Potassium 4.5 mmol/L (3.5-5.1); Protein, Total 8.8 g/dL (6.4-8.2); Sodium Level 131 mmol/L (136-145); Thyroid Stim Hormone (TSH) 2.06 uIU/mL (0.358-3.74); Triglycerides 127 mg/dL; Very Low Density Lipoprotein 25 mg/dL (5-40)
== END | disposition home or self-care (01) ==
LOC: LAB 15:03
PROVIDERS: Referring Provider Physician Assistant Medical; Visit Provider Physician Assistant Medical
DX: R00.0 Tachycardia, unspecified (principal); R06.09 Other forms of dyspnea; R07.89 Other chest pain; I11.9 Hypertensive heart disease without heart failure; I25.2 Old myocardial infarction
CPT/HCPCS: 36415; 80053; 80061; 84443; 85025

== ENCOUNTER → 2024-07-12 | Outpatient (CLI) | payer BC, SELFPAY ==
[2024-07-12 19:46] LABS: ALB/GLOB Ratio 1.1 RATIO (0.9-2.4); AST(SGOT) 92 U/L (<=31); Alanine Aminotransfer ALT/SGPT 77 U/L (<=34); Albumin, Serum 4.3 g/dL (3.5-5.0); Alkaline Phosphatase 101 U/L (35-104); Anion Gap 15 (5-15); BUN 16 mg/dL (4-19); BUN/Creat Ratio 17.1 RATIO (10-20); Calcium,Total 10.2 mg/dL (7.6-11.0); Carbon Dioxide 24.3 mmol/L (21.0-32.0); Chloride 99 mmol/L (98-108); Creatinine, Serum 0.93 mg/dL (0.70-1.20); EST Glomerular Filtration Rate 73 (>60); Globulin 3.9 g/dL (2.2-4.2); Glucose 109 mg/dL (70-99); Magnesium 1.3 mg/dL (1.5-2.2); Potassium 4.2 mmol/L (3.3-5.1); Protein, Total 8.2 g/dL (5.9-8.4); Sodium Level 138 mmol/L (133-145); Total Bilirubin 0.81 mg/dL (0.00-1.30)
== END | disposition home or self-care (01) ==
PROVIDERS: Referring Provider Internal Medicine Cardiovascular Disease; Visit Provider Internal Medicine Cardiovascular Disease
DX: R00.0 Tachycardia, unspecified (principal); R00.2 Palpitations
CPT/HCPCS: 36415; 80053; 83735; 84443